=== PATIENT | female | born 1950 | race Two or more races ===

== ENCOUNTER 2017-02-16 08:50 | Outpatient (CLI) | payer OTHER ==
[~2017-02-16 08:50] MED LIST: AMOX1TAB12 PO; ASPIR 8181 MG; CALTRATE-600600 MG; CELEBREX100 MG PO; COZAAR50 MG PO; CRESTOR5 MG PO; FLONASE16 GM NS; GARLIC1000 MG; NASONEX17 GM NS; OMEPRAZOLE40 MG PO; PROVENTIL S1 ML/5 MG IH; RESTORA CAPSUL1 EACH PO; SYNTEST D.S TAB1 TAB; SYNTHROID100 MCG PO; TUSSI PRES-B L120 M1 PO; VASOTEC10 MG; ZITHROMAX TRI-500 MG PO; ZYRTEC10 MG PO
== END 2017-02-16 15:00 | disposition home or self-care (01) ==
LOC: TOM 08:50
DX: J44.9 Chronic obstructive pulmonary disease, unspecified (principal); R07.89 Other chest pain

== ENCOUNTER → 2017-04-06 | Outpatient (CLI) | payer OTHER | END | disposition home or self-care (01) | LOC: RX STUDY → EDBD → RX STUDY 08-25 07:23 → RAD 09:25 | DX: M12.862 Other specific arthropathies, not elsewhere classified, left knee (principal); M12.861 Other specific arthropathies, not elsewhere classified, right knee ==

== ENCOUNTER → 2017-04-06 | Outpatient (CLI) | payer OTHER | END | disposition home or self-care (01) | LOC: SONOGRAMA 09:27 → NUCLEAR 04-09 13:00 | DX: M12.862 Other specific arthropathies, not elsewhere classified, left knee (principal); M12.861 Other specific arthropathies, not elsewhere classified, right knee; M17.0 Bilateral primary osteoarthritis of knee ==

== ENCOUNTER 2017-04-09 13:27 | Outpatient (CLI) | payer OTHER | END 2017-04-09 13:29 | disposition home or self-care (01) | LOC: NUCLEAR 13:27 | DX: M81.0 Age-related osteoporosis without current pathological fracture (principal) ==

== ENCOUNTER → 2017-05-14 | Emergency (ER) | payer OTHER ==
[~2017-05-14] VITALS: Ht 154.9 cm; Wt 63.5 kg
[~2017-05-14] MED LIST changes: +CIPRO500 MG PO; +MUPIROCIN22 GM TOP; +PANTOPRAZOLE SO40 MG
== END | disposition left against medical advice (07) ==
LOC: ER 13:35
DX: Z53.20 Procedure and treatment not carried out because of patient's decision for unspecified reasons (principal)

== ENCOUNTER 2017-05-18 01:26 | Emergency (ER) | payer OTHER ==
[~2017-05-18] VITALS: Ht 152.4 cm; Wt 77.1 kg
[~2017-05-18 01:26] MED LIST changes: -CIPRO500 MG PO; -MUPIROCIN22 GM TOP
[2017-05-18] MEDS ORDERED: CIPRO500 MG PO ×2 (05:34→05:35)
[2017-05-18] MEDS ORDERED: MUPIROCIN22 GM TOP ×2 (05:38→05:42)
== END 2017-05-18 06:01 | disposition home or self-care (01) ==
LOC: ER 01:26
DX: R33.8 Other retention of urine (principal); N39.0 Urinary tract infection, site not specified

== ENCOUNTER → 2017-05-31 | Emergency (ER) | payer OTHER ==
[~2017-05-31] MED LIST changes: +CIPRO500 MG PO; +MUPIROCIN22 GM TOP
== END | disposition left against medical advice (07) ==
LOC: ER 11:52
DX: Z53.20 Procedure and treatment not carried out because of patient's decision for unspecified reasons (principal)

== ENCOUNTER → 2017-06-18 | Outpatient (CLI) | payer OTHER | END | disposition home or self-care (01) | LOC: RAD 10:16 | DX: M12.89 Other specific arthropathies, not elsewhere classified, multiple sites (principal); M19.90 Unspecified osteoarthritis, unspecified site ==

== ENCOUNTER 2017-06-27 07:10 | Outpatient (CLI) | payer OTHER ==
[~2017-06-27] VITALS: Ht 152.4 cm; Wt 68.0 kg
[2017-06-27] MEDS ORDERED: FLONASE16 GM NASAL (09:12)
[2017-06-27] MEDS ORDERED: ZYRTEC10 MG PO (09:13)
== END 2017-06-27 07:30 | disposition home or self-care (01) ==
LOC: OFIC 805 07:10
DX: E03.8 Other specified hypothyroidism (principal); J32.8 Other chronic sinusitis; J33.0 Polyp of nasal cavity; R06.83 Snoring

== ENCOUNTER 2017-07-02 07:10 | Outpatient (CLI) | payer OTHER ==
[~2017-07-02 07:10] MED LIST changes: +FLONASE16 GM NASAL
== END 2017-07-02 07:12 | disposition home or self-care (01) ==
LOC: SONOGRAMA 07:10
DX: R10.9 Unspecified abdominal pain (principal)

== ENCOUNTER 2017-07-09 08:46 | Outpatient (CLI) | payer OTHER | END 2017-07-09 08:51 | disposition home or self-care (01) | LOC: MAMO-SONO 08:46 | DX: Z12.31 Encounter for screening mammogram for malignant neoplasm of breast (principal); Z87.898 Personal history of other specified conditions; N61.0 Mastitis without abscess; N60.19 Diffuse cystic mastopathy of unspecified breast ==

== ENCOUNTER 2017-07-24 12:43 | Emergency (ER) | payer OTHER ==
[~2017-07-24] VITALS: Ht 154.9 cm; Wt 63.5 kg
[2017-07-25] MEDS ORDERED: ZYRTEC10 MG PO (11:29)
[2017-07-25] MEDS ORDERED: FLONASE16 GM NASAL (11:29)
== END 2017-07-24 15:27 | disposition home or self-care (01) ==
LOC: ER 12:43
DX: M54.89 Other dorsalgia (principal); M54.6 Pain in thoracic spine; R06.02 Shortness of breath; F41.8 Other specified anxiety disorders

== ENCOUNTER 2017-07-25 10:41 | Outpatient (CLI) | payer OTHER ==
[~2017-07-25] VITALS: Ht 152.4 cm; Wt 68.0 kg
[2017-07-25] MEDS ORDERED: FLONASE16 GM NASAL (11:29)
[2017-07-25] MEDS ORDERED: ZYRTEC10 MG PO (11:29)
== END 2017-07-25 11:10 | disposition home or self-care (01) ==
LOC: OFIC 805 10:41
DX: J32.8 Other chronic sinusitis (principal); J33.0 Polyp of nasal cavity; E03.8 Other specified hypothyroidism

== ENCOUNTER 2017-08-10 06:56 | Emergency (ER) | payer OTHER ==
[~2017-08-10] VITALS: Ht 157.5 cm; Wt 66.7 kg
[2017-08-10] MEDS ORDERED: MEDROLPACK PO (08:34)
[2017-08-10] MEDS ORDERED: VICKS VAPORUB170 G2 TOP (08:34)
[2017-08-10] MEDS ORDERED: ZITHROMAX TRI-500 MG PO (08:34)
== END 2017-08-10 08:55 | disposition home or self-care (01) ==
LOC: ER 06:56
DX: J04.0 Acute laryngitis (principal)

== ENCOUNTER 2017-08-15 07:30 | Outpatient (CLI) | payer OTHER ==
[~2017-08-15] VITALS: Ht 152.4 cm; Wt 66.2 kg
[~2017-08-15 07:30] MED LIST changes: +MEDROLPACK PO; +VICKS VAPORUB170 G2 TOP
== END 2017-08-15 07:45 | disposition home or self-care (01) ==
LOC: OFIC 805 07:30
DX: J01.80 Other acute sinusitis (principal); J04.0 Acute laryngitis; J31.0 Chronic rhinitis; J06.9 Acute upper respiratory infection, unspecified; E89.0 Postprocedural hypothyroidism

== ENCOUNTER → 2017-09-11 | Emergency (ER) | payer OTHER | END | disposition left against medical advice (07) | LOC: ER 11:07 | DX: Z53.20 Procedure and treatment not carried out because of patient's decision for unspecified reasons (principal) ==

== ENCOUNTER 2017-11-11 17:07 | Emergency (ER) | payer OTHER ==
[~2017-11-11] VITALS: Ht 154.9 cm; Wt 68.0 kg
== END 2017-11-11 20:08 | disposition home or self-care (01) ==
LOC: ER 17:07
DX: I87.2 Venous insufficiency (chronic) (peripheral) (principal); M25.561 Pain in right knee

== ENCOUNTER 2017-11-28 16:12 | Emergency (ER) | payer OTHER ==
[~2017-11-28] VITALS: Ht 154.9 cm; Wt 68.0 kg
[2017-11-28] MEDS ORDERED: SYNTHROID100 MCG (16:30)
[2017-11-28] MEDS ORDERED: VITAMIN D400 UNI2 (16:30)
[2017-11-28] MEDS ORDERED: VITAMIN C60 MG (16:30)
[2017-11-28] MEDS ORDERED: ZANTAC150 MG (16:30)
== END 2017-11-28 17:42 | disposition home or self-care (01) ==
LOC: ER 16:12
DX: I86.8 Varicose veins of other specified sites (principal); M79.605 Pain in left leg

== ENCOUNTER 2017-12-04 08:04 | Outpatient (CLI) | payer OTHER ==
[~2017-12-04 08:04] MED LIST changes: +SYNTHROID100 MCG; +VITAMIN C60 MG; +VITAMIN D400 UNI2; +ZANTAC150 MG
== END 2017-12-04 08:11 | disposition home or self-care (01) ==
LOC: NUCLEAR 08:04
DX: R07.89 Other chest pain (principal); J44.9 Chronic obstructive pulmonary disease, unspecified

== ENCOUNTER 2018-01-30 08:55 | Outpatient (CLI) | payer OTHER | END 2018-01-30 08:57 | disposition home or self-care (01) | LOC: SONOGRAMA 08:55 | DX: N60.11 Diffuse cystic mastopathy of right breast (principal); N60.12 Diffuse cystic mastopathy of left breast; Z12.31 Encounter for screening mammogram for malignant neoplasm of breast ==

== ENCOUNTER 2018-02-08 18:54 | Emergency (ER) | payer OTHER ==
[~2018-02-08] VITALS: Ht 152.4 cm; Wt 65.8 kg
== END 2018-02-08 22:04 | disposition home or self-care (01) ==
LOC: ER 18:54
DX: N39.0 Urinary tract infection, site not specified (principal); R10.2 Pelvic and perineal pain

== ENCOUNTER 2018-02-25 02:37 | Emergency (ER) | payer OTHER ==
[~2018-02-25] VITALS: Ht 165.1 cm; Wt 64.4 kg
== END 2018-02-25 07:46 | disposition home or self-care (01) ==
LOC: ER 02:37
DX: R33.8 Other retention of urine (principal); N32.0 Bladder-neck obstruction

== ENCOUNTER → 2018-02-26 | Emergency (ER) | payer OTHER ==
[~2018-02-26] VITALS: Ht 154.9 cm; Wt 74.8 kg
== END | disposition home or self-care (01) ==
LOC: ER 22:16
DX: S90.112A Contusion of left great toe without damage to nail, initial encounter (principal); W22.8XXA Striking against or struck by other objects, initial encounter; Y93.89 Activity, other specified; Y92.59 Other trade areas as the place of occurrence of the external cause; Y99.8 Other external cause status

== ENCOUNTER 2018-03-12 10:42 | Outpatient (CLI) | payer OTHER | END 2018-03-12 14:02 | disposition home or self-care (01) | LOC: SONOGRAMA 10:42 | DX: M19.90 Unspecified osteoarthritis, unspecified site (principal) ==

== ENCOUNTER → 2018-03-19 | Outpatient (CLI) | payer OTHER | END | disposition home or self-care (01) | LOC: NUCLEAR 14:49 | DX: I87.2 Venous insufficiency (chronic) (peripheral) (principal) ==

== ENCOUNTER 2018-04-03 07:10 | Outpatient (CLI) | payer OTHER ==
[~2018-04-03] VITALS: Ht 152.4 cm; Wt 64.0 kg
[2018-04-03] MEDS ORDERED: FLONASE16 GM NASAL ×2 (09:06→09:07)
[2018-04-03] MEDS ORDERED: CETIRIZINE HCL10 MG PO ×2 (09:07)
== END 2018-04-03 07:25 | disposition home or self-care (01) ==
LOC: OFIC 805 07:10
DX: J32.8 Other chronic sinusitis (principal); J37.0 Chronic laryngitis; J31.0 Chronic rhinitis

== ENCOUNTER 2018-04-05 07:41 | Outpatient (CLI) | payer OTHER ==
[~2018-04-05 07:41] MED LIST changes: +CETIRIZINE HCL10 MG PO
== END 2018-04-05 08:08 | disposition home or self-care (01) ==
LOC: SONOGRAMA 07:41
DX: R31.9 Hematuria, unspecified (principal)

== ENCOUNTER 2018-05-07 18:51 | Emergency (ER) | payer OTHER ==
[~2018-05-07] VITALS: Ht 157.5 cm; Wt 66.2 kg
== END 2018-05-07 21:52 | disposition home or self-care (01) ==
LOC: ER 18:51
DX: N39.0 Urinary tract infection, site not specified (principal); B96.89 Other specified bacterial agents as the cause of diseases classified elsewhere

== ENCOUNTER 2018-05-14 07:07 | Outpatient (CLI) | payer OTHER | END 2018-05-14 07:14 | disposition home or self-care (01) | LOC: RAD 07:07 | DX: M12.89 Other specific arthropathies, not elsewhere classified, multiple sites (principal) ==

== ENCOUNTER → 2018-05-25 | Emergency (ER) | payer OTHER ==
[~2018-05-25] VITALS: Ht 154.9 cm; Wt 65.8 kg
== END | disposition left against medical advice (07) ==
LOC: ER 09:01
DX: Z53.20 Procedure and treatment not carried out because of patient's decision for unspecified reasons (principal)

== ENCOUNTER 2018-06-11 08:59 | Outpatient (CLI) | payer OTHER | END 2018-06-11 16:40 | disposition home or self-care (01) | LOC: LAB 08:59 | DX: R74.8 Abnormal levels of other serum enzymes (principal); Z11.3 Encounter for screening for infections with a predominantly sexual mode of transmission; A60.04 Herpesviral vulvovaginitis ==

== ENCOUNTER → 2018-07-26 | Emergency (ER) | payer OTHER ==
[~2018-07-26] VITALS: Ht 160 cm; Wt 67.1 kg
== END | disposition home or self-care (01) ==
LOC: ER 08:22
DX: M25.561 Pain in right knee (principal)

== ENCOUNTER → 2018-08-03 | Emergency (ER) | payer OTHER ==
[~2018-08-03] VITALS: Ht 154.9 cm; Wt 65.8 kg
[~2018-08-03] MED LIST changes: +DICLOFENAC POTA50 MG
== END | disposition left against medical advice (07) ==
LOC: ER 11:01
DX: Z53.20 Procedure and treatment not carried out because of patient's decision for unspecified reasons (principal)

== ENCOUNTER 2018-08-07 09:12 | Outpatient (CLI) | payer OTHER | END 2018-08-07 09:22 | disposition home or self-care (01) | LOC: RAD 501 09:12 | DX: M25.561 Pain in right knee (principal); M25.562 Pain in left knee ==

== ENCOUNTER 2018-08-08 15:09 | Outpatient (CLI) | payer OTHER | END 2018-08-08 15:11 | disposition home or self-care (01) | LOC: RAD 15:09 | DX: M17.0 Bilateral primary osteoarthritis of knee (principal) ==

== ENCOUNTER 2018-08-29 07:38 | Outpatient (CLI) | payer OTHER | END 2018-08-29 07:51 | disposition home or self-care (01) | LOC: LAB 07:38 | DX: D64.89 Other specified anemias (principal); E88.89 Other specified metabolic disorders; D68.8 Other specified coagulation defects; N39.0 Urinary tract infection, site not specified; Z22.322 Carrier or suspected carrier of Methicillin resistant Staphylococcus aureus; I49.8 Other specified cardiac arrhythmias; Z76.89 Persons encountering health services in other specified circumstances ==

== ENCOUNTER 2018-09-04 21:55 | Emergency (ER) | payer OTHER ==
[~2018-09-04] VITALS: Ht 152.4 cm; Wt 66.2 kg
== END 2018-09-05 01:50 | disposition home or self-care (01) ==
LOC: ER 21:55 → EDBD 09-05 00:08 → ER 09-05 01:50
DX: R42 Dizziness and giddiness (principal); R11.0 Nausea; R45.0 Nervousness; R40.0 Somnolence; T40.2X5A Adverse effect of other opioids, initial encounter; Y92.89 Other specified places as the place of occurrence of the external cause

== ENCOUNTER 2018-09-09 05:00 | Day surgery (SDC) | payer OTHER | END 2018-09-09 16:00 | disposition home or self-care (01) | LOC: CIR.AMB 05:00 | DX: M23.321 Other meniscus derangements, posterior horn of medial meniscus, right knee (principal); M23.261 Derangement of other lateral meniscus due to old tear or injury, right knee; M12.261 Villonodular synovitis (pigmented), right knee; M22.41 Chondromalacia patellae, right knee ==

== ENCOUNTER 2018-09-27 19:05 | Emergency (ER) | payer OTHER ==
[~2018-09-27] VITALS: Ht 157.5 cm; Wt 70.3 kg
== END 2018-09-27 22:20 | disposition home or self-care (01) ==
LOC: ER 19:05
DX: R42 Dizziness and giddiness (principal); F06.4 Anxiety disorder due to known physiological condition

== ENCOUNTER 2018-11-13 06:38 | Outpatient (CLI) | payer OTHER | END 2018-11-13 06:50 | disposition home or self-care (01) | LOC: LAB 06:38 | DX: M06.89 Other specified rheumatoid arthritis, multiple sites (principal); I10 Essential (primary) hypertension; E11.9 Type 2 diabetes mellitus without complications; E03.8 Other specified hypothyroidism; E78.2 Mixed hyperlipidemia; M12.88 Other specific arthropathies, not elsewhere classified, other specified site; M81.0 Age-related osteoporosis without current pathological fracture ==

== ENCOUNTER 2018-11-29 08:57 | Outpatient (CLI) | payer OTHER ==
[~2018-11-29] VITALS: Ht 152.4 cm; Wt 63.5 kg
== END 2018-11-29 12:25 | disposition home or self-care (01) ==
LOC: OFIC 805 08:57
DX: J37.0 Chronic laryngitis (principal); R49.8 Other voice and resonance disorders; J31.0 Chronic rhinitis; E03.8 Other specified hypothyroidism

== ENCOUNTER 2018-12-03 02:51 | Emergency (ER) | payer OTHER ==
[~2018-12-03] VITALS: Ht 152.4 cm; Wt 63.5 kg
[2018-12-03] MEDS ORDERED: [UNRECOGNIZED DRUG - OTHER] (03:12)
== END 2018-12-03 05:04 | disposition home or self-care (01) ==
LOC: ER 02:51
DX: R33.8 Other retention of urine (principal)

== ENCOUNTER 2018-12-21 01:36 | Emergency (ER) | payer OTHER ==
[~2018-12-21] VITALS: Ht 154.9 cm; Wt 64.9 kg
[~2018-12-21 01:36] MED LIST changes: +[UNRECOGNIZED DRUG - OTHER]
== END 2018-12-21 04:06 | disposition home or self-care (01) ==
LOC: ER 01:36
DX: R33.8 Other retention of urine (principal)

== ENCOUNTER 2019-02-07 06:19 | Outpatient (CLI) | payer OTHER | END 2019-02-07 06:44 | disposition home or self-care (01) | LOC: LAB 06:19 | DX: I10 Essential (primary) hypertension (principal); E11.9 Type 2 diabetes mellitus without complications; E03.8 Other specified hypothyroidism; E78.2 Mixed hyperlipidemia; M83.8 Other adult osteomalacia ==

== ENCOUNTER 2019-02-13 13:54 | Outpatient (CLI) | payer OTHER | END 2019-02-13 14:01 | disposition home or self-care (01) | LOC: LAB 13:54 | DX: N39.0 Urinary tract infection, site not specified (principal) ==

== ENCOUNTER 2019-03-02 02:23 | Emergency (ER) | payer OTHER ==
[~2019-03-02] VITALS: Ht 152.4 cm; Wt 63.5 kg
[2019-03-02] MEDS ORDERED: TUSNEL LIQUID178 ML PO (04:47)
[2019-03-02] MEDS ORDERED: CLARITIN10 MG PO (04:47)
== END 2019-03-02 04:51 | disposition home or self-care (01) ==
LOC: ER 02:23
DX: B34.9 Viral infection, unspecified (principal)

== ENCOUNTER 2019-07-10 10:15 | Outpatient (CLI) | payer OTHER ==
[~2019-07-10 10:15] MED LIST changes: +CLARITIN10 MG PO; +TUSNEL LIQUID178 ML PO
== END 2019-07-10 11:20 | disposition home or self-care (01) ==
LOC: NUCLEAR 10:15
DX: I20.1 Angina pectoris with documented spasm (principal); M81.0 Age-related osteoporosis without current pathological fracture

== ENCOUNTER → 2019-07-10 12:47 | Outpatient (CLI) | payer OTHER | END | disposition home or self-care (01) | LOC: RAD 12:47 | DX: I10 Essential (primary) hypertension (principal) ==

== ENCOUNTER → 2019-07-21 08:46 | Outpatient (CLI) | payer OTHER | END | disposition home or self-care (01) | LOC: LAB 08:46 | DX: E03.8 Other specified hypothyroidism (principal) ==

== ENCOUNTER 2019-07-31 06:45 | Outpatient (CLI) | payer OTHER | END 2019-07-31 15:00 | disposition home or self-care (01) | LOC: LAB 06:45 | PROVIDERS: ATTEND Obstetrics & Gynecology | DX: Z11.3 Encounter for screening for infections with a predominantly sexual mode of transmission (principal); Z11.4 Encounter for screening for human immunodeficiency virus [HIV] ==

== ENCOUNTER 2019-08-11 11:17 | Outpatient (CLI) | payer OTHER ==
[~2019-08-11] VITALS: Ht 152.4 cm; Wt 65.8 kg
== END 2019-08-11 15:48 | disposition home or self-care (01) ==
LOC: OFIC 805 11:17
PROVIDERS: ATTEND Otolaryngology
DX: H65.92 Unspecified nonsuppurative otitis media, left ear (principal); J30.89 Other allergic rhinitis; H61.21 Impacted cerumen, right ear

== ENCOUNTER 2019-08-12 09:36 | Outpatient (CLI) | payer OTHER | END 2019-08-12 09:38 | disposition home or self-care (01) | LOC: RAD 09:36 | PROVIDERS: ATTEND Internal Medicine Cardiovascular Disease | DX: J44.9 Chronic obstructive pulmonary disease, unspecified (principal) ==

== ENCOUNTER → 2019-08-15 09:54 | Outpatient (CLI) | payer OTHER | END | disposition home or self-care (01) | LOC: LAB 09:54 | PROVIDERS: ATTEND Internal Medicine Cardiovascular Disease | DX: R10.84 Generalized abdominal pain (principal); A05.8 Other specified bacterial foodborne intoxications ==

== ENCOUNTER 2019-09-03 07:28 | Outpatient (CLI) | payer OTHER | END 2019-09-03 07:30 | disposition home or self-care (01) | LOC: MAMO-SONO 07:28 | DX: Z12.31 Encounter for screening mammogram for malignant neoplasm of breast (principal); N60.12 Diffuse cystic mastopathy of left breast; N60.11 Diffuse cystic mastopathy of right breast ==

== ENCOUNTER → 2019-09-11 | Outpatient (CLI) | payer OTHER | END | disposition home or self-care (01) | LOC: OFIC 805 11:30 | PROVIDERS: ATTEND Otolaryngology | DX: H90.42 Sensorineural hearing loss, unilateral, left ear, with unrestricted hearing on the contralateral side (principal); G47.33 Obstructive sleep apnea (adult) (pediatric) ==

== ENCOUNTER 2019-09-12 07:13 | Outpatient (CLI) | payer OTHER | END 2019-09-12 15:00 | disposition home or self-care (01) | LOC: LAB 07:13 | PROVIDERS: ATTEND Internal Medicine Cardiovascular Disease | DX: N39.0 Urinary tract infection, site not specified (principal) ==

== ENCOUNTER 2019-10-28 09:53 | Outpatient (CLI) | payer OTHER | END 2019-10-28 13:00 | disposition home or self-care (01) | LOC: OFIC 805 09:53 | PROVIDERS: ATTEND Otolaryngology | DX: G47.33 Obstructive sleep apnea (adult) (pediatric) (principal); H90.42 Sensorineural hearing loss, unilateral, left ear, with unrestricted hearing on the contralateral side; J30.89 Other allergic rhinitis ==

== ENCOUNTER → 2019-11-12 | Outpatient (CLI) | payer OTHER | END | disposition home or self-care (01) | LOC: NUCLEAR 09:00 | PROVIDERS: ATTEND Internal Medicine Cardiovascular Disease | DX: I87.2 Venous insufficiency (chronic) (peripheral) (principal) ==

== ENCOUNTER → 2020-01-23 10:30 | Outpatient (CLI) | payer OTHER | END | disposition home or self-care (01) | LOC: LAB 10:30 | PROVIDERS: ATTEND Internal Medicine Cardiovascular Disease | DX: N39.0 Urinary tract infection, site not specified (principal) ==

== ENCOUNTER 2020-04-15 07:37 | Outpatient (CLI) | payer OTHER | END 2020-04-15 08:00 | disposition home or self-care (01) | LOC: MAMO-SONO 07:37 | PROVIDERS: ATTEND Student in an Organized Health Care Education/Training Program | DX: D24.1 Benign neoplasm of right breast (principal); D24.2 Benign neoplasm of left breast; N64.59 Other signs and symptoms in breast; N60.11 Diffuse cystic mastopathy of right breast; N60.12 Diffuse cystic mastopathy of left breast; R10.84 Generalized abdominal pain; K57.90 Diverticulosis of intestine, part unspecified, without perforation or abscess without bleeding; Z12.31 Encounter for screening mammogram for malignant neoplasm of breast ==

== ENCOUNTER → 2020-06-11 06:45 | Outpatient (CLI) | payer OTHER ==
[~2020-06-11 06:45] MED LIST changes: +BACLOFEN10 MG; +KETO10TA2 PO; +NASAL MIST126 ML; +SKELAXIN800 MG PO; +VOLTAREN100 GM TOP; +[UNRECOGNIZED DRUG - SUPPLY] TOP
== END | disposition home or self-care (01) ==
LOC: LAB 06:45
DX: N39.0 Urinary tract infection, site not specified (principal)

== ENCOUNTER 2020-06-17 07:40 | Emergency (ER) | payer OTHER ==
[~2020-06-17] VITALS: Ht 152.4 cm; Wt 66.7 kg
[~2020-06-17 07:40] MED LIST changes: -BACLOFEN10 MG; -KETO10TA2 PO; -NASAL MIST126 ML; -SKELAXIN800 MG PO; -VOLTAREN100 GM TOP; -[UNRECOGNIZED DRUG - SUPPLY] TOP
[2020-06-17] MEDS ORDERED: NASAL MIST126 ML (08:05)
[2020-06-17] MEDS ORDERED: BACLOFEN10 MG (08:05)
[2020-06-17] MEDS ORDERED: [UNRECOGNIZED DRUG - SUPPLY] TOP (11:36)
[2020-06-17] MEDS ORDERED: SKELAXIN800 MG PO (11:36)
[2020-06-17] MEDS ORDERED: VOLTAREN100 GM TOP (11:36)
[2020-06-17] MEDS ORDERED: KETO10TA2 PO (11:36)
== END 2020-06-17 11:48 | disposition home or self-care (01) ==
LOC: ER 07:40
DX: M54.2 Cervicalgia (principal); M62.838 Other muscle spasm; M54.12 Radiculopathy, cervical region

== ENCOUNTER → 2020-06-22 06:39 | Outpatient (CLI) | payer OTHER ==
[~2020-06-22 06:39] MED LIST changes: +ATORVASTATIN CA10 MG PO; +BACLOFEN10 MG; +KETO10TA2 PO; +NASAL MIST126 ML; +PANTOPRAZOLE SO40 MG PO; +SKELAXIN800 MG PO; +SYNTHROID88 MCG PO; +VOLTAREN100 GM TOP; +[UNRECOGNIZED DRUG - SUPPLY] TOP
== END | disposition home or self-care (01) ==
LOC: LAB 06:39
PROVIDERS: ATTEND Internal Medicine Cardiovascular Disease
DX: N39.0 Urinary tract infection, site not specified (principal)

== ENCOUNTER 2020-06-28 14:13 | Outpatient (CLI) | payer OTHER ==
[~2020-06-28 14:13] MED LIST changes: -ATORVASTATIN CA10 MG PO; -PANTOPRAZOLE SO40 MG PO; -SYNTHROID88 MCG PO
== END 2020-06-28 14:19 | disposition home or self-care (01) ==
LOC: LAB 14:13
PROVIDERS: ATTEND Internal Medicine Cardiovascular Disease
DX: B00.9 Herpesviral infection, unspecified (principal); A60.9 Anogenital herpesviral infection, unspecified

== ENCOUNTER 2020-08-06 07:32 | Emergency (ER) | payer OTHER ==
[~2020-08-06] VITALS: Ht 152.4 cm; Wt 68.0 kg
[2020-08-06] MEDS ORDERED: PANTOPRAZOLE SO40 MG PO (07:45)
[2020-08-06] MEDS ORDERED: SYNTHROID88 MCG PO (07:45)
[2020-08-06] MEDS ORDERED: ATORVASTATIN CA10 MG PO (07:46)
== END 2020-08-06 10:12 | disposition home or self-care (01) ==
LOC: ER 07:32
DX: S60.221A Contusion of right hand, initial encounter (principal); S40.021A Contusion of right upper arm, initial encounter; W18.09XA Striking against other object with subsequent fall, initial encounter; Y93.89 Activity, other specified; Y92.414 Local residential or business street as the place of occurrence of the external cause; Y99.8 Other external cause status

== ENCOUNTER → 2020-08-13 06:40 | Outpatient (CLI) | payer OTHER ==
[~2020-08-13 06:40] MED LIST changes: +ATORVASTATIN CA10 MG PO; +PANTOPRAZOLE SO40 MG PO; +SYNTHROID88 MCG PO
== END | disposition home or self-care (01) ==
LOC: LAB 06:40
PROVIDERS: ATTEND Internal Medicine Cardiovascular Disease
DX: E03.9 Hypothyroidism, unspecified (principal); E78.2 Mixed hyperlipidemia; I10 Essential (primary) hypertension; E11.9 Type 2 diabetes mellitus without complications; M31.6 Other giant cell arteritis

== ENCOUNTER 2020-08-17 09:54 | Emergency (ER) | payer OTHER ==
[~2020-08-17] VITALS: Ht 152.4 cm; Wt 68.5 kg
== END 2020-08-17 10:40 | disposition home or self-care (01) ==
LOC: ER 09:54
DX: G44.89 Other headache syndrome (principal)

== ENCOUNTER 2020-11-06 08:19 | Outpatient (CLI) | payer OTHER | END 2020-11-06 08:26 | disposition home or self-care (01) | LOC: LAB 08:19 | PROVIDERS: ATTEND Specialist | DX: I10 Essential (primary) hypertension (principal); D68.8 Other specified coagulation defects; E78.89 Other lipoprotein metabolism disorders; R82.79 Other abnormal findings on microbiological examination of urine ==

== ENCOUNTER 2020-11-12 07:17 | Outpatient (CLI) | payer OTHER | END 2020-11-12 07:18 | disposition home or self-care (01) | LOC: NUCLEAR 07:17 | PROVIDERS: ATTEND Internal Medicine Cardiovascular Disease | DX: R07.89 Other chest pain (principal) | CPT/HCPCS: 78452; 93017; A9500 ==

== ENCOUNTER 2020-12-07 13:54 | Outpatient (CLI) | payer OTHER | END 2020-12-07 13:55 | disposition home or self-care (01) | LOC: LAB 13:54 | PROVIDERS: ATTEND Obstetrics & Gynecology | DX: N39.0 Urinary tract infection, site not specified (principal) ==

== ENCOUNTER → 2020-12-09 07:09 | Outpatient (CLI) | payer OTHER | END | disposition home or self-care (01) | LOC: LAB 07:09 | PROVIDERS: ATTEND Internal Medicine Cardiovascular Disease | DX: I10 Essential (primary) hypertension (principal); E11.9 Type 2 diabetes mellitus without complications; E03.8 Other specified hypothyroidism; E78.2 Mixed hyperlipidemia; Z12.11 Encounter for screening for malignant neoplasm of colon; E55.9 Vitamin D deficiency, unspecified; N39.0 Urinary tract infection, site not specified ==

== ENCOUNTER 2020-12-31 12:30 | Outpatient (CLI) | payer OTHER ==
[~2020-12-31 12:30] MED LIST changes: +NORVASC2.5 M1 PO
== END 2020-12-31 12:38 | disposition home or self-care (01) ==
LOC: RAD 12:30
PROVIDERS: ATTEND Internal Medicine Cardiovascular Disease
DX: I10 Essential (primary) hypertension (principal)

== ENCOUNTER 2021-01-05 07:25 | Outpatient (CLI) | payer OTHER | END 2021-01-05 07:26 | disposition home or self-care (01) | LOC: NUCLEAR 07:25 | PROVIDERS: ATTEND Internal Medicine Cardiovascular Disease | DX: I73.9 Peripheral vascular disease, unspecified (principal) ==

== ENCOUNTER → 2021-01-12 14:08 | Outpatient (CLI) | payer OTHER | END | disposition home or self-care (01) | LOC: LAB 14:08 | PROVIDERS: ATTEND General Practice | DX: N39.0 Urinary tract infection, site not specified (principal) ==

== ENCOUNTER 2021-01-17 07:13 | Outpatient (CLI) | payer OTHER | END 2021-01-17 07:22 | disposition home or self-care (01) | LOC: TOM 07:13 | PROVIDERS: ATTEND Specialist | DX: K57.90 Diverticulosis of intestine, part unspecified, without perforation or abscess without bleeding (principal); R10.84 Generalized abdominal pain ==

== ENCOUNTER 2021-03-31 10:03 | Outpatient (CLI) | payer OTHER | END 2021-03-31 10:09 | disposition home or self-care (01) | LOC: LAB 10:03 | PROVIDERS: ATTEND Internal Medicine Endocrinology, Diabetes & Metabolism | DX: B00.89 Other herpesviral infection (principal) ==

== ENCOUNTER 2021-04-12 07:23 | Outpatient (CLI) | payer OTHER | END 2021-04-12 07:25 | disposition home or self-care (01) | LOC: SONOGRAMA 07:23 | PROVIDERS: ATTEND Internal Medicine Cardiovascular Disease | DX: M12.9 Arthropathy, unspecified (principal) ==

== ENCOUNTER 2021-04-19 08:16 | Outpatient (CLI) | payer OTHER | END 2021-04-19 08:22 | disposition home or self-care (01) | LOC: TOM 08:16 | PROVIDERS: ATTEND Internal Medicine Cardiovascular Disease | DX: R51.9 Headache, unspecified (principal) ==

== ENCOUNTER 2021-04-21 19:16 | Emergency (ER) | payer OTHER ==
[~2021-04-21] VITALS: Ht 149.9 cm; Wt 66.2 kg
[2021-04-21] MEDS ORDERED: INDAPAMIDE1.25 MG (19:31)
[2021-04-21] MEDS ORDERED: IBANDRONATE SO150 MG (19:32)
== END 2021-04-21 20:31 | disposition home or self-care (01) ==
LOC: ER 19:16
DX: R50.9 Fever, unspecified (principal); I10 Essential (primary) hypertension; Z88.0 Allergy status to penicillin

== ENCOUNTER 2021-04-29 06:59 | Outpatient (CLI) | payer OTHER ==
[~2021-04-29 06:59] MED LIST changes: +IBANDRONATE SO150 MG; +INDAPAMIDE1.25 MG
== END 2021-04-29 07:00 | disposition home or self-care (01) ==
LOC: LAB 06:59
PROVIDERS: ATTEND Internal Medicine Cardiovascular Disease
DX: E03.9 Hypothyroidism, unspecified (principal); I10 Essential (primary) hypertension; E11.9 Type 2 diabetes mellitus without complications; E78.2 Mixed hyperlipidemia; E55.9 Vitamin D deficiency, unspecified

== ENCOUNTER 2021-06-04 02:11 | Emergency (ER) | payer OTHER ==
[~2021-06-04] VITALS: Ht 162.6 cm; Wt 63.5 kg
[2021-06-04] MEDS ORDERED: TAMS0.4C PO (04:42)
== END 2021-06-04 04:58 | disposition home or self-care (01) ==
LOC: ER 02:11
DX: R33.9 Retention of urine, unspecified (principal); Z88.0 Allergy status to penicillin

== ENCOUNTER 2021-06-29 06:33 | Outpatient (CLI) | payer OTHER ==
[~2021-06-29 06:33] MED LIST changes: +TAMS0.4C PO
== END 2021-06-29 06:34 | disposition home or self-care (01) ==
LOC: LAB 06:33
PROVIDERS: ATTEND Obstetrics & Gynecology
DX: A63.0 Anogenital (venereal) warts (principal); B97.3 Retrovirus as the cause of diseases classified elsewhere; Z11.51 Encounter for screening for human papillomavirus (HPV); A53.9 Syphilis, unspecified; B00.9 Herpesviral infection, unspecified; D64.9 Anemia, unspecified; R74.01 Elevation of levels of liver transaminase levels

== ENCOUNTER 2021-07-24 08:03 | Emergency (ER) | payer OTHER ==
[~2021-07-24] VITALS: Ht 154.9 cm; Wt 65.8 kg
[2021-07-24] MEDS ORDERED: LEVO-T75 MCG PO (08:13)
== END 2021-07-24 12:16 | disposition home or self-care (01) ==
LOC: ER 08:03
DX: B34.9 Viral infection, unspecified (principal); R09.81 Nasal congestion; I10 Essential (primary) hypertension; E78.00 Pure hypercholesterolemia, unspecified; E03.9 Hypothyroidism, unspecified; Z20.822 Contact with and (suspected) exposure to COVID-19; Z88.0 Allergy status to penicillin

== ENCOUNTER 2021-08-20 11:12 | Emergency (ER) | payer OTHER ==
[~2021-08-20] VITALS: Ht 149.9 cm; Wt 66.2 kg
[~2021-08-20 11:12] MED LIST changes: +LEVO-T75 MCG PO
== END 2021-08-20 15:32 ==
LOC: ER 11:12
DX: J04.0 Acute laryngitis (principal); Z20.822 Contact with and (suspected) exposure to COVID-19; Z88.0 Allergy status to penicillin; I10 Essential (primary) hypertension

== ENCOUNTER 2021-08-22 09:35 | Outpatient (CLI) | payer OTHER | END 2021-08-22 09:38 | disposition home or self-care (01) | LOC: MAMO-SONO 09:35 | PROVIDERS: ATTEND Specialist | DX: D24.1 Benign neoplasm of right breast (principal); D24.2 Benign neoplasm of left breast ==

== ENCOUNTER 2021-08-23 10:46 | Outpatient (CLI) | payer OTHER | END 2021-08-23 10:52 | disposition home or self-care (01) | LOC: RAD 10:46 | PROVIDERS: ATTEND Physical Medicine & Rehabilitation | DX: S93.402A Sprain of unspecified ligament of left ankle, initial encounter (principal); M17.0 Bilateral primary osteoarthritis of knee ==

== ENCOUNTER 2021-08-30 04:04 | Emergency (ER) | payer OTHER ==
[~2021-08-30] VITALS: Ht 154.9 cm; Wt 65.8 kg
== END 2021-08-30 13:04 | disposition home or self-care (01) ==
LOC: ER 04:04
DX: R00.1 Bradycardia, unspecified (principal); F41.9 Anxiety disorder, unspecified; E03.9 Hypothyroidism, unspecified; F43.10 Post-traumatic stress disorder, unspecified; R07.89 Other chest pain; I10 Essential (primary) hypertension; Z88.0 Allergy status to penicillin

== ENCOUNTER 2021-09-06 08:03 | Outpatient (CLI) | payer OTHER | END 2021-09-06 08:08 | disposition home or self-care (01) | LOC: LAB 08:03 | PROVIDERS: ATTEND Internal Medicine Cardiovascular Disease | DX: E03.9 Hypothyroidism, unspecified (principal) ==

== ENCOUNTER 2021-09-08 18:21 | Inpatient (IN) | payer OTHER ==
[~2021-09-08] VITALS: Ht 152.4 cm; Wt 64.4 kg
[2021-09-09] MEDS ORDERED: PANTOPRAZOLE SO40 MG (13:44)
[2021-09-09] MEDS ORDERED: TRIAMCINOLONE A15 G1 (13:44)
[2021-09-09] MEDS ORDERED: MAXIMUM D3325 MCG (13:44)
[2021-09-09] MEDS ORDERED: FOLIC ACID1 MG (13:44)
== END 2021-09-12 21:13 | disposition home or self-care (01) | DRG 641 ==
LOC: ER 18:21 → SEC-K 09-09 10:35 → MEDJ 09-09 10:35
PROVIDERS: ADMIT Internal Medicine; ATTEND Internal Medicine
PROC: BW28ZZZ Computerized Tomography (CT Scan) of Head (ICD-10-PCS; principal; 2021-09-09)
PROC: BW28ZZZ Computerized Tomography (CT Scan) of Head (ICD-10-PCS; 2021-09-11)
DX: E87.1 Hypo-osmolality and hyponatremia (principal); K29.70 Gastritis, unspecified, without bleeding; R10.13 Epigastric pain; E03.9 Hypothyroidism, unspecified; I10 Essential (primary) hypertension; Z88.0 Allergy status to penicillin

== ENCOUNTER 2021-09-14 10:25 | Outpatient (CLI) | payer OTHER ==
[~2021-09-14 10:25] MED LIST changes: +FOLIC ACID1 MG; +MAXIMUM D3325 MCG; +TRIAMCINOLONE A15 G1
== END 2021-09-14 10:33 | disposition home or self-care (01) ==
LOC: RAD 10:25
PROVIDERS: ATTEND Orthopaedic Surgery
DX: M25.511 Pain in right shoulder (principal)

== ENCOUNTER 2021-09-14 10:44 | Outpatient (CLI) | payer OTHER | END 2021-09-14 10:45 | disposition home or self-care (01) | LOC: NUCLEAR 10:44 | PROVIDERS: ATTEND Orthopaedic Surgery | DX: M81.0 Age-related osteoporosis without current pathological fracture (principal) ==

== ENCOUNTER 2021-09-14 11:39 | Outpatient (CLI) | payer OTHER | END 2021-09-14 11:41 | disposition home or self-care (01) | LOC: LAB 11:39 | PROVIDERS: ATTEND Orthopaedic Surgery | DX: N19 Unspecified kidney failure (principal) ==

== ENCOUNTER 2021-09-16 21:03 | Emergency (ER) | payer OTHER ==
[~2021-09-16] VITALS: Ht 157.5 cm; Wt 61.2 kg
== END 2021-09-16 23:58 | disposition home or self-care (01) ==
LOC: ER 21:03
DX: I10 Essential (primary) hypertension (principal); Z88.0 Allergy status to penicillin

== ENCOUNTER 2021-10-01 09:57 | Emergency (ER) | payer OTHER ==
[~2021-10-01] VITALS: Ht 147.3 cm; Wt 63.5 kg
[2021-10-01] MEDS ORDERED: PROTONIX40 M1 PO (10:11)
== END 2021-10-01 11:10 | disposition home or self-care (01) ==
LOC: ER 09:57
DX: M62.838 Other muscle spasm (principal); J39.2 Other diseases of pharynx; I10 Essential (primary) hypertension; Z88.0 Allergy status to penicillin

== ENCOUNTER 2021-10-06 06:16 | Outpatient (CLI) | payer OTHER ==
[~2021-10-06 06:16] MED LIST changes: +PROTONIX40 M1 PO
== END 2021-10-06 06:20 | disposition home or self-care (01) ==
LOC: LAB 06:16
PROVIDERS: ATTEND Internal Medicine Cardiovascular Disease
DX: E11.9 Type 2 diabetes mellitus without complications (principal)

== ENCOUNTER → 2021-10-31 06:31 | Outpatient (CLI) | payer OTHER | END | disposition home or self-care (01) | LOC: LAB 06:31 | PROVIDERS: ATTEND Obstetrics & Gynecology Maternal & Fetal Medicine | DX: N30.90 Cystitis, unspecified without hematuria (principal); D63.8 Anemia in other chronic diseases classified elsewhere; E08.9 Diabetes mellitus due to underlying condition without complications; E78.00 Pure hypercholesterolemia, unspecified; K92.1 Melena; E55.9 Vitamin D deficiency, unspecified; Z12.11 Encounter for screening for malignant neoplasm of colon ==

== ENCOUNTER 2021-11-24 12:00 | Outpatient (CLI) | payer OTHER | END 2021-11-24 12:06 | disposition home or self-care (01) | LOC: LAB 12:00 | PROVIDERS: ATTEND Obstetrics & Gynecology Maternal & Fetal Medicine | DX: E03.9 Hypothyroidism, unspecified (principal); N30.00 Acute cystitis without hematuria; D64.9 Anemia, unspecified ==

== ENCOUNTER → 2021-12-17 | Emergency (ER) | payer OTHER | END | disposition left against medical advice (07) | LOC: ER 15:35 | DX: Z53.21 Procedure and treatment not carried out due to patient leaving prior to being seen by health care provider (principal) ==

== ENCOUNTER 2022-02-17 11:09 | Outpatient (CLI) | payer OTHER | END 2022-02-17 11:15 | disposition home or self-care (01) | LOC: RAD 11:09 | PROVIDERS: ATTEND Physical Medicine & Rehabilitation | DX: M54.50 Low back pain, unspecified (principal); M25.552 Pain in left hip ==

== ENCOUNTER → 2022-03-03 | Emergency (ER) | payer OTHER ==
[~2022-03-03] VITALS: Ht 152.4 cm; Wt 65.8 kg
== END | disposition left against medical advice (07) ==
LOC: ER 13:55
DX: M79.662 Pain in left lower leg (principal)

== ENCOUNTER 2022-03-11 11:38 | Emergency (ER) | payer OTHER ==
[~2022-03-11] VITALS: Ht 152.4 cm; Wt 68.0 kg
[2022-03-11] MEDS ORDERED: NAPROXEN500 MG PO (13:27)
== END 2022-03-11 14:04 | disposition home or self-care (01) ==
LOC: ER 11:38
DX: M54.50 Low back pain, unspecified (principal)

== ENCOUNTER → 2022-04-01 | Emergency (ER) | payer OTHER ==
[~2022-04-01] VITALS: Ht 154.9 cm; Wt 68.0 kg
[~2022-04-01] MED LIST changes: +NAPROXEN500 MG PO
== END | disposition home or self-care (01) ==
LOC: ER 09:48
DX: H60.91 Unspecified otitis externa, right ear (principal); Z88.0 Allergy status to penicillin; I10 Essential (primary) hypertension

== ENCOUNTER 2022-05-01 19:17 | Emergency (ER) | payer OTHER ==
[~2022-05-01] VITALS: Ht 152.4 cm; Wt 68.9 kg
[2022-05-01] MEDS ORDERED: FLUCONAZOLE200 MG PO (21:43)
== END 2022-05-01 21:55 | disposition home or self-care (01) ==
LOC: ER 19:17
DX: I16.0 Hypertensive urgency (principal); Z88.0 Allergy status to penicillin

== ENCOUNTER 2022-06-03 07:07 | Outpatient (CLI) | payer OTHER ==
[~2022-06-03 07:07] MED LIST changes: +FLUCONAZOLE200 MG PO
== END 2022-06-03 07:17 | disposition home or self-care (01) ==
LOC: LAB 07:07
PROVIDERS: ATTEND Internal Medicine Cardiovascular Disease
DX: I11.9 Hypertensive heart disease without heart failure (principal); E78.9 Disorder of lipoprotein metabolism, unspecified

== ENCOUNTER 2022-06-14 21:43 | Emergency (ER) | payer OTHER ==
[~2022-06-14] VITALS: Ht 160 cm; Wt 72.6 kg
== END 2022-06-14 23:53 | disposition left against medical advice (07) ==
LOC: ER 21:43
DX: I10 Essential (primary) hypertension (principal); Z88.0 Allergy status to penicillin

== ENCOUNTER 2022-06-17 08:44 | Outpatient (CLI) | payer OTHER | END 2022-06-17 08:51 | disposition home or self-care (01) | LOC: LAB 08:44 | PROVIDERS: ATTEND Internal Medicine Cardiovascular Disease | DX: E78.2 Mixed hyperlipidemia (principal) ==

== ENCOUNTER 2022-06-28 19:44 | Emergency (ER) | payer OTHER ==
[~2022-06-28] VITALS: Ht 162.6 cm; Wt 71.7 kg
== END 2022-06-28 21:47 | disposition home or self-care (01) ==
LOC: ER 19:44
DX: I10 Essential (primary) hypertension (principal); Z88.0 Allergy status to penicillin

== ENCOUNTER 2022-07-02 19:43 | Emergency (ER) | payer OTHER ==
[~2022-07-02] VITALS: Ht 152.4 cm; Wt 69.9 kg
== END 2022-07-02 21:27 | disposition home or self-care (01) ==
LOC: ER 19:43
DX: S93.491A Sprain of other ligament of right ankle, initial encounter (principal); W18.39XA Other fall on same level, initial encounter; Y93.89 Activity, other specified; Y92.480 Sidewalk as the place of occurrence of the external cause; Z88.0 Allergy status to penicillin

== ENCOUNTER → 2022-07-07 | Emergency (ER) | payer OTHER ==
[~2022-07-07] VITALS: Ht 152.4 cm; Wt 69.4 kg
[~2022-07-07] MED LIST changes: +PANTOPRAZOLE SO40 M2 PO
== END | disposition home or self-care (01) ==
LOC: ER 17:49
DX: J37.0 Chronic laryngitis (principal); Z88.0 Allergy status to penicillin

== ENCOUNTER → 2022-07-24 | Outpatient (CLI) | payer OTHER | END | disposition home or self-care (01) | LOC: RAD 08:47 | PROVIDERS: ATTEND Orthopaedic Surgery | DX: M79.641 Pain in right hand (principal); M79.644 Pain in right finger(s); M79.671 Pain in right foot; M79.672 Pain in left foot; M25.571 Pain in right ankle and joints of right foot; M25.572 Pain in left ankle and joints of left foot ==

== ENCOUNTER → 2022-07-26 | Emergency (ER) | payer OTHER ==
[~2022-07-26] VITALS: Ht 152.4 cm; Wt 68.0 kg
== END | disposition home or self-care (01) ==
LOC: ER 11:01
DX: R07.9 Chest pain, unspecified (principal); K21.9 Gastro-esophageal reflux disease without esophagitis; E03.9 Hypothyroidism, unspecified; I10 Essential (primary) hypertension; Z88.0 Allergy status to penicillin; Z20.822 Contact with and (suspected) exposure to COVID-19

== ENCOUNTER 2022-09-06 09:01 | Emergency (ER) | payer OTHER ==
[~2022-09-06] VITALS: Ht 152.4 cm; Wt 69.4 kg
[2022-09-06] MEDS ORDERED: FLONASE SENSIM5.9 ML NASAL (11:24)
[2022-09-06] MEDS ORDERED: ZYRTEC10 MG PO (11:24)
== END 2022-09-06 11:48 | disposition home or self-care (01) ==
LOC: ER 09:01
DX: B34.9 Viral infection, unspecified (principal); I10 Essential (primary) hypertension; Z88.0 Allergy status to penicillin; Z20.822 Contact with and (suspected) exposure to COVID-19

== ENCOUNTER 2022-09-11 09:14 | Outpatient (CLI) | payer OTHER ==
[~2022-09-11 09:14] MED LIST changes: +FLONASE SENSIM5.9 ML NASAL
== END 2022-09-11 09:20 | disposition home or self-care (01) ==
LOC: MAMO-SONO 09:14
PROVIDERS: ATTEND Obstetrics & Gynecology Maternal & Fetal Medicine
DX: Z12.31 Encounter for screening mammogram for malignant neoplasm of breast (principal); N63.0 Unspecified lump in unspecified breast; N64.4 Mastodynia; N60.11 Diffuse cystic mastopathy of right breast

== ENCOUNTER 2022-10-31 18:45 | Emergency (ER) | payer OTHER ==
[~2022-10-31] VITALS: Ht 152.4 cm; Wt 68.0 kg
[2022-10-31] MEDS ORDERED: SYNTHROID75 MCG PO (19:20)
== END 2022-10-31 23:33 | disposition left against medical advice (07) ==
LOC: ER 18:45
PROVIDERS: General Practice
DX: J06.9 Acute upper respiratory infection, unspecified (principal); I10 Essential (primary) hypertension; E03.9 Hypothyroidism, unspecified; K21.9 Gastro-esophageal reflux disease without esophagitis; Z88.0 Allergy status to penicillin; Z20.822 Contact with and (suspected) exposure to COVID-19; M19.041 Primary osteoarthritis, right hand

== ENCOUNTER 2022-11-11 08:05 | Outpatient (CLI) | payer OTHER ==
[~2022-11-11 08:05] MED LIST changes: +SYNTHROID75 MCG PO
== END 2022-11-11 08:09 | disposition home or self-care (01) ==
LOC: LAB 08:05
PROVIDERS: ATTEND Internal Medicine Cardiovascular Disease
DX: E03.9 Hypothyroidism, unspecified (principal); E78.2 Mixed hyperlipidemia; K92.0 Hematemesis; I10 Essential (primary) hypertension; E11.9 Type 2 diabetes mellitus without complications; Z12.11 Encounter for screening for malignant neoplasm of colon

== ENCOUNTER 2022-11-13 09:33 | Outpatient (CLI) | payer OTHER | END 2022-11-13 09:34 | disposition home or self-care (01) | LOC: LAB 09:33 | PROVIDERS: ATTEND Internal Medicine Cardiovascular Disease | DX: Z12.11 Encounter for screening for malignant neoplasm of colon (principal); I10 Essential (primary) hypertension; E11.9 Type 2 diabetes mellitus without complications; E03.9 Hypothyroidism, unspecified; E78.2 Mixed hyperlipidemia; K92.0 Hematemesis ==

== ENCOUNTER 2022-11-18 20:09 | Emergency (ER) | payer OTHER ==
[~2022-11-18] VITALS: Ht 152.4 cm; Wt 68.0 kg
[2022-11-18] MEDS ORDERED: ATORVASTATIN CA20 MG PO (20:17)
== END 2022-11-18 21:59 | disposition home or self-care (01) ==
LOC: ER 20:09
DX: R07.89 Other chest pain (principal); F41.8 Other specified anxiety disorders; Z88.0 Allergy status to penicillin

== ENCOUNTER 2023-02-20 08:44 | Emergency (ER) | payer OTHER ==
[~2023-02-20] VITALS: Ht 147.3 cm; Wt 69.9 kg
[~2023-02-20 08:44] MED LIST changes: +ATORVASTATIN CA20 MG PO
== END 2023-02-20 10:32 | disposition home or self-care (01) ==
LOC: ER 08:45
DX: M25.552 Pain in left hip (principal); Z88.0 Allergy status to penicillin; Z91.013 Allergy to seafood
CPT/HCPCS: 96372; 99284; J1885

== ENCOUNTER → 2023-03-16 | Emergency (ER) | payer OTHER ==
[~2023-03-16] VITALS: Ht 152.4 cm; Wt 69.4 kg
== END | disposition left against medical advice (07) ==
LOC: ER 12:50
DX: Z53.21 Procedure and treatment not carried out due to patient leaving prior to being seen by health care provider (principal)

== ENCOUNTER 2023-04-03 18:14 | Emergency (ER) | payer OTHER ==
[~2023-04-03] VITALS: Ht 152.4 cm; Wt 70.8 kg
[2023-04-03 19:36] LABS: HEMATOCRIT 36.7 % (36.0-45.00); HEMOGLOBIN 12.7 g/dL (12.0-15.00); MEAN CELL VOLUME 88.1 fL (80.00-100.00); MEAN CORPUSCULAR HEMOGLOBIN 30.6 pg (27.00-32.0); MEAN CORPUSCULAR HGB CONC 34.7 g/dl (32.0-36.0); PLATELET COUNT 273 K/uL (150-450); RED BLOOD COUNT 4.17 M/uL (4.00-6.00); RED CELL DISTRIBUTION WIDTH 16.9 % (11.5-14.5)
[2023-04-03 20:01] LABS: CALCIUM 9.7 mg/dL (8.5-10.1); CREATININE SERUM 1.03 mg/dL (0.55-1.02); GFR 52.52; POTASSIUM 3.36 mEq/L (3.5-5.1)
[2023-04-03 20:05] LABS: PH,URINE 5.5 (5.0-8.0); URINE APPEARANCE Clear; URINE BILIRRUBIN Negative (NEGATIVE); URINE BLOOD Negative; URINE COLOR Yellow; URINE GLUCOSE Negative (NEGATIVE); URINE LEUKOCYTE Negative; URINE NITRATE Negative; URINE PROTEIN Trace (NEGATIVE); URINE UROBILINOGEN 0.2 E.U./dl
[2023-04-03 20:09] LABS: URINE BACTERIA 190.2 uL (0.0-1933); URINE EPITHELIAL CELLS 24.4 uL (0.0-38.8); URINE WBC 12.8 uL (0.0-23.2)
[2023-04-03 20:11] LABS: URINE RBC 1.2 uL (0.0-20.8)
== END 2023-04-03 23:22 | disposition home or self-care (01) ==
LOC: ER 18:14
PROVIDERS: Emergency Medicine
DX: R42 Dizziness and giddiness (principal); Z88.0 Allergy status to penicillin; Z91.013 Allergy to seafood; E03.9 Hypothyroidism, unspecified

== ENCOUNTER → 2023-04-11 09:02 | Outpatient (CLI) | payer OTHER ==
[2023-04-11 09:56] LABS: MEAN CELL VOLUME 88.5 fL (80.00-100.00); MEAN CORPUSCULAR HEMOGLOBIN 30.4 pg (27.00-32.0); MEAN CORPUSCULAR HGB CONC 34.4 g/dl (32.0-36.0); PLATELET COUNT 249 K/uL (150-450); RED BLOOD COUNT 3.96 M/uL (4.00-6.00); RED CELL DISTRIBUTION WIDTH 16.9 % (11.5-14.5)
[2023-04-11 09:59] LABS: PH,URINE 7.5 (5.0-8.0); URINE APPEARANCE Clear; URINE BILIRRUBIN Negative (NEGATIVE); URINE BLOOD Negative; URINE COLOR Yellow; URINE GLUCOSE Negative (NEGATIVE); URINE LEUKOCYTE Negative; URINE NITRATE Negative; URINE PROTEIN Trace (NEGATIVE); URINE UROBILINOGEN 0.2 E.U./dl
[2023-04-11 10:03] LABS: URINE BACTERIA 128.4 uL (0.0-1933); URINE EPITHELIAL CELLS 19.7 uL (0.0-38.8); URINE RBC 4.4 uL (0.0-20.8); URINE WBC 5.1 uL (0.0-23.2)
[2023-04-11 11:16] LABS: ALBUMIN 3.9 gm/dL (3.4-5.0); BILIRUBIN TOTAL 0.7 mg/dL (0.3-1.2); CALCIUM 8.8 mg/dL (8.5-10.1); CHOL HDL RATIO 5.6 (0-5.0); CREATININE SERUM 0.96 mg/dL (0.55-1.02); GFR 56.97; GLOBULINA 3.3 G/DL (2.4-3.5); POTASSIUM 4.11 mEq/L (3.5-5.1); T4 TOTAL 6.75 UG/DL (4.8-13.9); TOTAL PROTEIN 7.2 gm/dL (6.4-8.2)
== END | disposition home or self-care (01) ==
LOC: LAB 09:02
PROVIDERS: ATTEND Internal Medicine Cardiovascular Disease
DX: I10 Essential (primary) hypertension (principal); E11.9 Type 2 diabetes mellitus without complications; E03.9 Hypothyroidism, unspecified; E78.2 Mixed hyperlipidemia; Z12.11 Encounter for screening for malignant neoplasm of colon; E55.9 Vitamin D deficiency, unspecified

== ENCOUNTER 2023-04-16 15:03 | Outpatient (CLI) | payer OTHER ==
[2023-04-16 16:00] LABS: ob NEGATIVE (NEGATIVE)
== END 2023-04-16 15:06 | disposition home or self-care (01) ==
LOC: LAB 15:03
PROVIDERS: ATTEND Internal Medicine Cardiovascular Disease
DX: I10 Essential (primary) hypertension (principal); E11.9 Type 2 diabetes mellitus without complications; E03.9 Hypothyroidism, unspecified; E78.2 Mixed hyperlipidemia; Z12.11 Encounter for screening for malignant neoplasm of colon; E55.9 Vitamin D deficiency, unspecified

== ENCOUNTER → 2023-05-02 06:43 | Outpatient (CLI) | payer OTHER ==
[2023-05-02 07:09] LABS: HEMATOCRIT 35.8 % (36.0-45.00); HEMOGLOBIN 12.3 g/dL (12.0-15.00); MEAN CELL VOLUME 90.1 fL (80.00-100.00); MEAN CORPUSCULAR HEMOGLOBIN 31.1 pg (27.00-32.0); MEAN CORPUSCULAR HGB CONC 34.5 g/dl (32.0-36.0); PLATELET COUNT 294 K/uL (150-450); RED BLOOD COUNT 3.97 M/uL (4.00-6.00); RED CELL DISTRIBUTION WIDTH 16.1 % (11.5-14.5)
[2023-05-02 07:50] LABS: PH,URINE 7.5 (5.0-8.0); URINE APPEARANCE Clear; URINE BILIRRUBIN Negative (NEGATIVE); URINE BLOOD Negative; URINE COLOR Yellow; URINE GLUCOSE Negative (NEGATIVE); URINE LEUKOCYTE Trace; URINE NITRATE Negative; URINE PROTEIN 30 (NEGATIVE); URINE UROBILINOGEN 0.2 E.U./dl
[2023-05-02 07:53] LABS: URINE BACTERIA 589.6 uL (0.0-1933); URINE EPITHELIAL CELLS 41.2 uL (0.0-38.8); URINE RBC 8.1 uL (0.0-20.8); URINE WBC 16.5 uL (0.0-23.2)
[2023-05-02 08:13] LABS: ALBUMIN 3.9 gm/dL (3.4-5.0); BILIRUBIN TOTAL 0.49 mg/dL (0.3-1.2); CALCIUM 9.1 mg/dL (8.5-10.1); CREATININE SERUM 0.9 mg/dL (0.55-1.02); GFR 61.21; POTASSIUM 4.22 mEq/L (3.5-5.1); T4 TOTAL 2.39 UG/DL (4.8-13.9); TOTAL PROTEIN 6.9 gm/dL (6.4-8.2)
[2023-05-02 08:28] LABS: CHOL HDL RATIO 5.3 (0-5.0)
[2023-05-02 13:52] LABS: T3 TOTAL 0.291 ng/ml (0.846-2.02); VITAMIN D3 25 HYDROXY 33.55 ng/ml (30-120)
== END | disposition home or self-care (01) ==
LOC: LAB 06:43
PROVIDERS: ATTEND Internal Medicine Cardiovascular Disease
DX: I10 Essential (primary) hypertension (principal); E11.9 Type 2 diabetes mellitus without complications; E03.9 Hypothyroidism, unspecified; E78.1 Pure hyperglyceridemia; E55.9 Vitamin D deficiency, unspecified; D64.9 Anemia, unspecified

== ENCOUNTER 2023-05-03 15:26 | Outpatient (CLI) | payer OTHER ==
[2023-05-03 16:10] LABS: ob NEGATIVE (NEGATIVE)
== END 2023-05-03 15:27 | disposition home or self-care (01) ==
LOC: LAB 15:26
PROVIDERS: ATTEND Internal Medicine Cardiovascular Disease
DX: I10 Essential (primary) hypertension (principal); E11.9 Type 2 diabetes mellitus without complications; E03.9 Hypothyroidism, unspecified; E78.2 Mixed hyperlipidemia; Z12.11 Encounter for screening for malignant neoplasm of colon; E55.9 Vitamin D deficiency, unspecified

== ENCOUNTER 2023-09-01 08:28 | Outpatient (CLI) | payer OTHER ==
[2023-09-01 09:36] LABS: URINE APPEARANCE Clear; URINE BILIRRUBIN Negative (NEGATIVE); URINE BLOOD Negative; URINE COLOR Yellow; URINE GLUCOSE Negative (NEGATIVE); URINE LEUKOCYTE Negative; URINE NITRATE Negative; URINE PROTEIN Negative (NEGATIVE); URINE UROBILINOGEN 0.2 E.U./dl
[2023-09-01 09:43] LABS: URINE EPITHELIAL CELLS 40.7 uL (0.0-38.8); URINE RBC 10.2 uL (0.0-20.8); URINE WBC 4.9 uL (0.0-23.2)
[2023-09-01 10:44] LABS: CALCIUM 9.1 mg/dL (8.5-10.1); CHOL HDL RATIO 2.7 (0-5.0); CREATININE SERUM 0.62 mg/dL (0.55-1.02); GFR 94.09; POTASSIUM 4.25 mEq/L (3.5-5.1)
[2023-09-01 10:48] LABS: T4 TOTAL 17.13 UG/DL (4.8-13.9)
[2023-09-01 10:49] LABS: TSH 0.01 uIU/mL (0.358-3.74)
[2023-09-01 11:01] LABS: HEMATOCRIT 34.1 % (36.0-45.00); HEMOGLOBIN 11.5 g/dL (12.0-15.00); MEAN CELL VOLUME 84.3 fL (80.00-100.00); MEAN CORPUSCULAR HEMOGLOBIN 28.6 pg (27.00-32.0); MEAN CORPUSCULAR HGB CONC 33.9 g/dl (32.0-36.0); PLATELET COUNT 271 K/uL (150-450); RED BLOOD COUNT 4.04 M/uL (4.00-6.00); RED CELL DISTRIBUTION WIDTH 14.8 % (11.5-14.5)
== END 2023-09-01 08:29 | disposition home or self-care (01) ==
LOC: LAB 08:28
PROVIDERS: ATTEND Internal Medicine Cardiovascular Disease
DX: E11.9 Type 2 diabetes mellitus without complications (principal); E78.2 Mixed hyperlipidemia; I10 Essential (primary) hypertension

== ENCOUNTER 2023-09-25 20:58 | Emergency (ER) | payer OTHER ==
[~2023-09-25] VITALS: Ht 152.4 cm; Wt 68.0 kg
== END 2023-09-26 00:49 | disposition left against medical advice (07) ==
LOC: ER 20:58
DX: Z53.21 Procedure and treatment not carried out due to patient leaving prior to being seen by health care provider (principal)

== ENCOUNTER 2023-09-28 22:00 | Emergency (ER) | payer OTHER ==
[~2023-09-28] VITALS: Ht 152.4 cm; Wt 63.5 kg
[2023-09-28] MEDS ORDERED: ENALAPRILAT DIHYDRATE 1.25 MG/ML VIAL IV ONE ×2 (22:45→23:02)
[2023-09-28] MEDS ORDERED: GUAIFENESIN/DEXTROMETHORPHAN 10ML BLIST.PACK PO ONE (22:45)
[2023-09-28] MEDS ORDERED: GUAIFEN/DEXTROMETHORPHAN/PE 10 ML BLIST.PACK PO ONE (23:02)
[2023-09-28 23:32] LABS: HEMATOCRIT 33.5 % (36.0-45.00); HEMOGLOBIN 11.2 g/dL (12.0-15.00); MEAN CELL VOLUME 81.1 fL (80.00-100.00); MEAN CORPUSCULAR HEMOGLOBIN 27.1 pg (27.00-32.0); MEAN CORPUSCULAR HGB CONC 33.4 g/dl (32.0-36.0); PLATELET COUNT 256 K/uL (150-450); RED BLOOD COUNT 4.13 M/uL (4.00-6.00); RED CELL DISTRIBUTION WIDTH 15.1 % (11.5-14.5)
[2023-09-28 23:45] LABS: ALBUMIN 3.7 gm/dL (3.4-5.0); BILIRUBIN TOTAL 0.34 mg/dL (0.3-1.2); CALCIUM 9.1 mg/dL (8.5-10.1); CREATININE SERUM 0.7 mg/dL (0.55-1.02); GFR 81.8; GLOBULINA 3.8 G/DL (2.4-3.5); POTASSIUM 3.6 mEq/L (3.5-5.1); TOTAL PROTEIN 7.5 gm/dL (6.4-8.2)
[2023-09-28] MEDS ORDERED: ACETAMINOPHEN 500 MG GEL..CAP PO ONE (23:54)
== END 2023-09-29 01:40 | disposition home or self-care (01) ==
LOC: ER 22:00
PROVIDERS: Emergency Medicine
DX: J32.9 Chronic sinusitis, unspecified (principal); R05.9 Cough, unspecified; Z20.822 Contact with and (suspected) exposure to COVID-19; I10 Essential (primary) hypertension; Z88.0 Allergy status to penicillin; Z91.013 Allergy to seafood
CPT/HCPCS: 36415; 71046; 96365; 99283; J3490

== ENCOUNTER 2023-12-20 08:27 | Outpatient (CLI) | payer OTHER | END 2023-12-20 08:29 | disposition home or self-care (01) | LOC: SONOGRAMA 08:27 | PROVIDERS: ATTEND Internal Medicine Cardiovascular Disease | DX: M12.9 Arthropathy, unspecified (principal) ==

== ENCOUNTER → 2024-04-10 10:28 | Outpatient (CLI) | payer OTHER ==
[2024-04-10 11:21] LABS: HEMATOCRIT 35.5 % (36.0-45.00); HEMOGLOBIN 12.2 g/dL (12.0-15.00); MEAN CELL VOLUME 87.4 fL (80.00-100.00); MEAN CORPUSCULAR HGB CONC 34.3 g/dl (32.0-36.0); PLATELET COUNT 311 K/uL (150-450); RED BLOOD COUNT 4.06 M/uL (4.00-6.00); RED CELL DISTRIBUTION WIDTH 15.9 % (11.5-14.5)
[2024-04-10 12:56] LABS: ALBUMIN 3.9 gm/dL (3.4-5.0); BILIRUBIN TOTAL 0.6 mg/dL (0.3-1.2); CREATININE SERUM 0.81 mg/dL (0.55-1.02); GFR 69.12; GLOBULINA 3.4 G/DL (2.4-3.5); POTASSIUM 4.24 mEq/L (3.5-5.1); T4 TOTAL 11.91 UG/DL (4.8-13.9); TOTAL PROTEIN 7.3 gm/dL (6.4-8.2)
[2024-04-10 12:57] LABS: CHOL HDL RATIO 4.1 (0-5.0)
[2024-04-10 12:58] LABS: TSH 23.3 uIU/mL (0.358-3.74)
[2024-04-10 13:22] LABS: T3 TOTAL 0.995 ng/ml (0.846-2.02); VITAMIN D3 25 HYDROXY 43.72 ng/ml (30-120)
== END | disposition home or self-care (01) ==
LOC: LAB 10:28
PROVIDERS: ATTEND Internal Medicine Cardiovascular Disease
DX: E03.9 Hypothyroidism, unspecified (principal); I10 Essential (primary) hypertension; E11.9 Type 2 diabetes mellitus without complications; E78.2 Mixed hyperlipidemia; D64.0 Hereditary sideroblastic anemia; E55.9 Vitamin D deficiency, unspecified; M81.0 Age-related osteoporosis without current pathological fracture

== ENCOUNTER 2024-04-12 09:52 | Outpatient (CLI) | payer OTHER ==
[2024-04-12 12:11] LABS: ob POSITIVE (NEGATIVE)
== END 2024-04-12 09:57 | disposition home or self-care (01) ==
LOC: LAB 09:52
PROVIDERS: ATTEND Internal Medicine Cardiovascular Disease
DX: E78.2 Mixed hyperlipidemia (principal); I10 Essential (primary) hypertension; E11.9 Type 2 diabetes mellitus without complications; E03.9 Hypothyroidism, unspecified; D64.9 Anemia, unspecified; E55.9 Vitamin D deficiency, unspecified; M81.0 Age-related osteoporosis without current pathological fracture

== ENCOUNTER 2024-04-21 13:10 | Outpatient (CLI) | payer OTHER | END 2024-04-21 13:19 | disposition home or self-care (01) | LOC: MAMO-SONO 13:10 | PROVIDERS: ATTEND Obstetrics & Gynecology | DX: N60.09 Solitary cyst of unspecified breast (principal); N95.0 Postmenopausal bleeding; Z12.31 Encounter for screening mammogram for malignant neoplasm of breast ==

== ENCOUNTER 2024-04-27 19:10 | Emergency (ER) | payer OTHER ==
[~2024-04-27] VITALS: Ht 152.4 cm; Wt 63.5 kg
[2024-04-27 20:22] LABS: HEMATOCRIT 34.4 % (36.0-45.00); HEMOGLOBIN 11.9 g/dL (12.0-15.00); MEAN CELL VOLUME 87.5 fL (80.00-100.00); MEAN CORPUSCULAR HEMOGLOBIN 30.4 pg (27.00-32.0); MEAN CORPUSCULAR HGB CONC 34.7 g/dl (32.0-36.0); PLATELET COUNT 311 K/uL (150-450); RED BLOOD COUNT 3.93 M/uL (4.00-6.00); RED CELL DISTRIBUTION WIDTH 14.8 % (11.5-14.5)
[2024-04-27 20:44] LABS: URINE APPEARANCE Clear; URINE BILIRRUBIN Negative (NEGATIVE); URINE BLOOD Negative; URINE COLOR Yellow; URINE GLUCOSE Negative (NEGATIVE); URINE KETONE Negative (NEGATIVE); URINE LEUKOCYTE Negative; URINE NITRATE Negative; URINE PROTEIN Negative (NEGATIVE); URINE UROBILINOGEN 0.2 E.U./dl
[2024-04-27 20:45] LABS: URINE BACTERIA 88.1 uL (0.0-1933); URINE EPITHELIAL CELLS 12.9 uL (0.0-38.8); URINE RBC 3.3 uL (0.0-20.8)
[2024-04-27 20:59] LABS: URINE CAST 0.14 uL (0.0-1.40)
== END 2024-04-27 22:06 | disposition home or self-care (01) ==
LOC: ER 19:10
PROVIDERS: General Practice
DX: R53.81 Other malaise (principal); I16.9 Hypertensive crisis, unspecified; I10 Essential (primary) hypertension; E03.8 Other specified hypothyroidism; Z88.0 Allergy status to penicillin; Z91.013 Allergy to seafood

== ENCOUNTER → 2024-05-12 10:48 | Outpatient (CLI) | payer OTHER | END | disposition home or self-care (01) | LOC: NUCLEAR 05-09 13:15 | PROVIDERS: ATTEND Obstetrics & Gynecology | DX: M85.9 Disorder of bone density and structure, unspecified (principal); M81.0 Age-related osteoporosis without current pathological fracture ==

== ENCOUNTER 2024-05-18 03:45 | Emergency (ER) | payer OTHER ==
[~2024-05-18] VITALS: Ht 152.4 cm; Wt 68.0 kg
== END 2024-05-18 04:53 | disposition home or self-care (01) ==
LOC: ER 03:45
DX: I10 Essential (primary) hypertension (principal); Z88.0 Allergy status to penicillin; Z91.013 Allergy to seafood

== ENCOUNTER 2024-05-20 10:43 | Outpatient (CLI) | payer OTHER | END 2024-05-20 10:48 | disposition home or self-care (01) | LOC: RAD 10:43 | PROVIDERS: ATTEND Internal Medicine Cardiovascular Disease | DX: M19.90 Unspecified osteoarthritis, unspecified site (principal) ==

== ENCOUNTER → 2024-06-08 | Emergency (ER) | payer OTHER ==
[~2024-06-08] VITALS: Ht 152.4 cm; Wt 64.4 kg
[~2024-06-08] MED LIST changes: +LOSARTAN-HCTZ1 EACH PO
== END | disposition left against medical advice (07) ==
LOC: ER 17:47
DX: Z53.21 Procedure and treatment not carried out due to patient leaving prior to being seen by health care provider (principal)

== ENCOUNTER → 2024-06-21 | Emergency (ER) | payer OTHER ==
[~2024-06-21] VITALS: Ht 152.4 cm; Wt 68.0 kg
[~2024-06-21] MED LIST changes: +IPRATROPIUM BROMIDE 0.5 MG/2.5 ML AMPUL.NEB IH SCH
[2024-06-21 09:59] LABS: HEMATOCRIT 34.8 % (36.0-45.00); HEMOGLOBIN 11.9 g/dL (12.0-15.00); MEAN CELL VOLUME 86.9 fL (80.00-100.00); MEAN CORPUSCULAR HEMOGLOBIN 29.7 pg (27.00-32.0); MEAN CORPUSCULAR HGB CONC 34.2 g/dl (32.0-36.0); PLATELET COUNT 320 K/uL (150-450); RED BLOOD COUNT 4.01 M/uL (4.00-6.00); RED CELL DISTRIBUTION WIDTH 14.1 % (11.5-14.5)
[2024-06-21 11:09] LABS: COVID-19 AG NEGATIVE (NEGATIVE)
[2024-06-21 11:11] LABS: INFLUENZA A AG NEGATIVE (NEGATIVE)
== END | disposition home or self-care (01) ==
LOC: ER 08:15
PROVIDERS: General Practice
DX: R05.8 Other specified cough (principal); R21 Rash and other nonspecific skin eruption; R05.9 Cough, unspecified; Z20.822 Contact with and (suspected) exposure to COVID-19; I10 Essential (primary) hypertension; E03.8 Other specified hypothyroidism

== ENCOUNTER → 2024-07-19 | Emergency (ER) | payer OTHER ==
[~2024-07-19] VITALS: Ht 152.4 cm; Wt 64.4 kg
[~2024-07-19] MED LIST changes: +ALBUTEROL2.5 MG/3 M IH; +BUDESONIDE0.5 MG/2 M IH; +COZAAR25 MG PO; +INDAPAMIDE1.25 MG PO; -IPRATROPIUM BROMIDE 0.5 MG/2.5 ML AMPUL.NEB IH SCH; +LOSARTAN POTASS50 MG PO; +PANTOPRAZOLE SO20 MG PO; +SINGULAIR10 MG PO
== END | disposition home or self-care (01) ==
LOC: ER 23:00
DX: Z53.21 Procedure and treatment not carried out due to patient leaving prior to being seen by health care provider (principal)

== ENCOUNTER 2024-07-23 05:27 | Emergency (ER) | payer OTHER ==
[~2024-07-23] VITALS: Ht 152.4 cm; Wt 64.4 kg
[2024-07-23 08:56] LABS: BASO % 0.7 % (0.1-1.2); EOS # 0.73 (0.04-0.54); EOS % 8.7 % (0.7-7.0); HEMOGLOBIN 12.1 g/dL (11.2-15.7); LYMPH # 1.89 (1.18-3.74); LYMPH % 22.5 % (19.3-53.1); MEAN CORPUSCULAR HEMOGLOBIN 28.3 pg (25.6-32.2); MONO # 0.53 (0.24-0.82); MONO % 6.3 % (4.7-12.5); NEUT # 5.16 (1.56-6.13); NEUT % 61.3 % (34.0-71.1); PLATELET COUNT 323 K/uL (163-369); RED BLOOD COUNT 4.28 M/uL (3.93-5.22); RED CELL DISTRIBUTION WIDTH 14.5 % (11.6-14.4)
[2024-07-23 09:13] LABS: URINE APPEARANCE Clear; URINE BILIRRUBIN Negative (NEGATIVE); URINE BLOOD Negative; URINE COLOR Yellow; URINE GLUCOSE Negative (NEGATIVE); URINE KETONE Negative (NEGATIVE); URINE LEUKOCYTE Negative; URINE NITRATE Negative; URINE PROTEIN Negative (NEGATIVE); URINE UROBILINOGEN 0.2 E.U./dl
[2024-07-23 09:14] LABS: URINE BACTERIA 50.1 uL (0.0-1933); URINE CAST 0.14 uL (0.0-1.40); URINE EPITHELIAL CELLS 6.6 uL (0.0-38.8); URINE RBC 3.8 uL (0.0-20.8); URINE WBC 6.3 uL (0.0-23.2)
[2024-07-23 09:21] LABS: CALCIUM 9.1 mg/dL (8.5-10.1); CREATININE SERUM 0.85 mg/dL (0.55-1.02); GFR 65.2; POTASSIUM 4.06 mEq/L (3.5-5.1)
[2024-07-23 10:15] LABS: INFLUENZA A AG NEGATIVE (NEGATIVE)
[2024-07-23 10:16] LABS: COVID-19 AG NEGATIVE (NEGATIVE)
== END 2024-07-23 10:56 | disposition home or self-care (01) ==
LOC: ER 05:27
PROVIDERS: General Practice
DX: R06.2 Wheezing (principal); R53.83 Other fatigue; I10 Essential (primary) hypertension; Z20.822 Contact with and (suspected) exposure to COVID-19

== ENCOUNTER → 2024-07-28 | Emergency (ER) | payer OTHER ==
[~2024-07-28] VITALS: Ht 152.4 cm; Wt 63.5 kg
== END | disposition left against medical advice (07) ==
LOC: ER 19:26
DX: Z53.21 Procedure and treatment not carried out due to patient leaving prior to being seen by health care provider (principal)

== ENCOUNTER 2024-07-30 11:19 | Outpatient (CLI) | payer OTHER | END 2024-07-30 11:25 | disposition home or self-care (01) | LOC: TOM 11:19 | PROVIDERS: ATTEND Internal Medicine Cardiovascular Disease | DX: R07.9 Chest pain, unspecified (principal); J44.9 Chronic obstructive pulmonary disease, unspecified; I10 Essential (primary) hypertension ==

== ENCOUNTER → 2024-08-01 | Emergency (ER) | payer OTHER ==
[~2024-08-01] VITALS: Ht 175.3 cm; Wt 63.5 kg
[~2024-08-01] MED LIST changes: +CETIRIZINE1 MG/1 ML PO; +Crestor 10MG TABLET PO; +LEVOTHYROXINE125 MCG PO; +PEPCID AC20 MG PO
== END | disposition left against medical advice (07) ==
LOC: ER 20:47
DX: Z53.21 Procedure and treatment not carried out due to patient leaving prior to being seen by health care provider (principal)

== ENCOUNTER → 2024-08-04 07:09 | Outpatient (CLI) | payer OTHER | END | disposition home or self-care (01) | LOC: NUCLEAR 07:00 | PROVIDERS: ATTEND Internal Medicine Cardiovascular Disease | DX: R07.9 Chest pain, unspecified (principal) | CPT/HCPCS: 78452; 93017; A9500; J0153 ==

== ENCOUNTER 2024-08-07 04:16 | Inpatient (IN) | payer OTHER ==
[~2024-08-07] VITALS: Ht 152.4 cm; Wt 63.5 kg
[~2024-08-07 04:16] MED LIST changes: -CETIRIZINE1 MG/1 ML PO; -Crestor 10MG TABLET PO; -LEVOTHYROXINE125 MCG PO; -PEPCID AC20 MG PO
--- NOTE | 2024-08-07 04:27 | NUR ---
SE RECIBE PACIENTE ALERTA Y ORIENTADA X 3 ESFERAS EN AMBULANCIA LA CUAL INDICA PRESENTO DOLOR DE ZACHERY YFN EL BRENDA DE KOREY Y QUE SE MIDIO LA PRESION ARTERIAL Y ESTABA ELEVADA. AL MOMENTO DEL TRIAGE NO REFIERE DOLOR. B/P:[id number].
[2024-08-07] MEDS ORDERED: METHYLPREDNISOLONE SOD SUCC 125 MG VIAL ONE (05:49)
[2024-08-07] MEDS ORDERED: METHYLPREDNISOLONE SOD SUCC 125 MG VIAL IV STA (05:49)
--- NOTE | 2024-08-07 05:55 | NUR ---
SE EDUCA A PTE SOBRE [place] MEDICO, SE RADHA MUESTRAS DE LABORATORIO UTILIZANDO MEDIDAS ASEPTICAS. SE COLOCA H/L DAKOTAH DE EDEMA. SE ADMINISTRA MEDICAMENTO SPEEDY ORDEN MEDICA. SE NOTIFICAN ABGS Y TERAPIAS PENDIENTES.
[2024-08-07] MEDS ORDERED: ALBUTEROL SULFATE 3 ML/2.5 MG AMPUL.NEB IH SCH (06:00)
[2024-08-07 06:18] LABS: BASO % 1.1 % (0.1-1.2); EOS # 0.78 (0.04-0.54); EOS % 10.7 % (0.7-7.0); HEMATOCRIT 36.4 % (34.1-44.9); HEMOGLOBIN 11.9 g/dL (11.2-15.7); LYMPH # 1.95 (1.18-3.74); LYMPH % 26.7 % (19.3-53.1); MONO # 0.52 (0.24-0.82); MONO % 7.1 % (4.7-12.5); NEUT # 3.92 (1.56-6.13); NEUT % 53.9 % (34.0-71.1); PLATELET COUNT 336 K/uL (163-369); RED BLOOD COUNT 4.25 M/uL (3.93-5.22); RED CELL DISTRIBUTION WIDTH 14.8 % (11.6-14.4)
[2024-08-07] MEDS ORDERED: ALBUTEROL SULFATE 3 ML/2.5 MG AMPUL.NEB IH ONE (06:21)
[2024-08-07 06:32] LABS: ABG PO2 102.9 mmHg (80-100); ABG pCO2 33.5 mmHg (35-45); BASE EXCESS 0.2 mmol/l; BICARBONATE 23.3 mmol/l (23-25); SaO2 98.2 %; Tco2 24.3 mmol/l
[2024-08-07 06:36] LABS: allen test SATISFACTORY; mode ROOM AIR; o2 21 %; puncture site RADIAL RIGHT
[2024-08-07 06:52] LABS: ALBUMIN 3.8 gm/dL (3.4-5.0); BILIRUBIN TOTAL 0.41 mg/dL (0.3-1.2); CALCIUM 9.2 mg/dL (8.5-10.1); CREATININE SERUM 0.77 mg/dL (0.55-1.02); GFR 73.08; POTASSIUM 4.09 mEq/L (3.5-5.1); TOTAL PROTEIN 7.8 gm/dL (6.4-8.2)
[2024-08-07 08:38] LABS: COVID-19 AG NEGATIVE (NEGATIVE); INFLUENZA A AG NEGATIVE (NEGATIVE); INFLUENZA B AG NEGATIVE (NEGATIVE)
[2024-08-07] MEDS ORDERED: CEFTRIAXONE SODIUM 1,000 MG in DEXTROSE 5 % IN WATER 100 ML IV SCH (16:08)
[2024-08-07] MEDS ORDERED: LOSARTAN POTASSIUM 50 MG TABLET PO SCH (16:10)
[2024-08-07] MEDS ORDERED: 0.9 % SODIUM CHLORIDE 1,000 ML IV SCH (16:15)
[2024-08-07] MEDS ORDERED: ACETAMINOPHEN 650 MG SUPP.RECT RECTAL PRN (16:15)
[2024-08-07 16:37] VITALS: BP 130/80
[2024-08-07] MEDS ORDERED: ROSUVASTATIN CALCIUM 10 MG TABLET PO SCH (17:00)
[2024-08-07] MEDS ORDERED: CETIRIZINE HCL 5 MG/5 ML ML PO SCH (17:00)
[2024-08-07] MEDS ORDERED: LACTOBACILLUS ACIDOPHILUS 1 CAP CAP PO SCH (17:00)
[2024-08-07] MEDS ORDERED: BENZONATATE 100 MG CAPSULE PO SCH (17:00)
[2024-08-07] MEDS ORDERED: IPRATROPIUM BROMIDE 0.5 MG/2.5 ML AMPUL.NEB IH SCH (17:00)
[2024-08-07] MEDS ORDERED: LEVALBUTEROL HCL 0.63 MG/3 ML SOLUTION IH SCH (17:00)
[2024-08-07] MEDS ORDERED: METHYLPREDNISOLONE SOD SUCC 40 MG VIAL IV SCH (17:00)
[2024-08-07] MEDS ORDERED: MONTELUKAST SODIUM 10 MG TABLET PO SCH (17:00)
[2024-08-07] MEDS ORDERED: BROMPHENIRAM/PHENYLEPHRINE/DM 5 ML BLIST.PACK PO SCH (17:00)
[2024-08-07] MEDS ORDERED: CEFTRIAXONE SODIUM 1,000 MG VIAL ONE (17:19)
[2024-08-07] MEDS ORDERED: METHYLPREDNISOLONE SOD SUCC 40 MG VIAL ONE (17:19)
[2024-08-07] MEDS ORDERED: GUAIFEN/DEXTROMETHORPHAN/PE 10 ML BLIST.PACK PO ONE (17:19)
[2024-08-07] MEDS ORDERED: BENZONATATE 100 MG CAPSULE PO ONE (17:19)
[2024-08-07] MEDS ORDERED: LACTOBACILLUS ACIDOPHILUS 1 CAP CAP PO ONE (17:20)
[2024-08-07 21:33] VITALS: BP 163/85
[2024-08-08 01:09] VITALS: BP 168/97; O2SAT 99
[2024-08-08] MEDS ORDERED: LEVOTHYROXINE SODIUM 100 MCG TABLET PO SCH (06:00)
[2024-08-08 06:29] LABS: BASO % 0.1 % (0.1-1.2); HEMATOCRIT 34.4 % (34.1-44.9); HEMOGLOBIN 11.6 g/dL (11.2-15.7); LYMPH # 1.15 (1.18-3.74); LYMPH % 12.1 % (19.3-53.1); MEAN CORPUSCULAR HEMOGLOBIN 28.7 pg (25.6-32.2); MONO # 0.18 (0.24-0.82); MONO % 1.9 % (4.7-12.5); NEUT # 8.02 (1.56-6.13); NEUT % 84.7 % (34.0-71.1); PLATELET COUNT 347 K/uL (163-369); RED BLOOD COUNT 4.04 M/uL (3.93-5.22); RED CELL DISTRIBUTION WIDTH 14.5 % (11.6-14.4)
[2024-08-08 06:55] LABS: ERYTHROCYTE SEDIMENTATION RATE 50 mm/hr (0-30)
[2024-08-08 07:11] LABS: PROTHROMBIN TIME 10.9 SECONDS (9.0-11.5)
[2024-08-08 07:53] LABS: ALBUMIN 3.7 gm/dL (3.4-5.0); BILIRUBIN TOTAL 0.26 mg/dL (0.3-1.2); CALCIUM 9.1 mg/dL (8.5-10.1); CREATININE SERUM 0.71 mg/dL (0.55-1.02); GFR 80.25; GLOBULINA 3.3 G/DL (2.4-3.5); POTASSIUM 4.63 mEq/L (3.5-5.1)
[2024-08-08 07:56] LABS: CHOL HDL RATIO 2.8 (0-5.0)
[2024-08-08 07:57] LABS: C-REACTIVE PROTEIN 0.3 MG/DL (0.00-0.29); TSH 38.6 uIU/mL (0.358-3.74)
[2024-08-08 08:55] VITALS: BP 150/82; O2SAT 95
[2024-08-08] MEDS ORDERED: PANTOPRAZOLE SODIUM 40 MG TABLET.DR PO SCH (09:00)
[2024-08-08] MEDS ORDERED: BENZONATATE 200 MG CAPSULE PO SCH (09:00)
[2024-08-08] MEDS ORDERED: INDAPAMIDE 1.25 MG TABLET PO SCH ×2 (09:00)
[2024-08-08] MEDS ORDERED: CEFTRIAXONE SODIUM 2,000 MG in 0.9 % SODIUM CHLORIDE 100 ML IV SCH (09:00)
[2024-08-08 10:00] LABS: PH,URINE 5.5 (5.0-8.0); URINE APPEARANCE Clear; URINE BILIRRUBIN Negative (NEGATIVE); URINE BLOOD Negative; URINE COLOR Yellow; URINE GLUCOSE Negative (NEGATIVE); URINE KETONE Negative (NEGATIVE); URINE LEUKOCYTE Negative; URINE NITRATE Negative; URINE PROTEIN Trace (NEGATIVE); URINE UROBILINOGEN 0.2 E.U./dl
[2024-08-08 10:01] LABS: URINE RBC 2.9 uL (0.0-20.8)
[2024-08-08 10:08] LABS: URINE BACTERIA 3.6 uL (0.0-1933)
[2024-08-08 13:00] VITALS: BP 130/66; O2SAT 96
[2024-08-08] MEDS ORDERED: FLUTICASONE PROPIONATE 50 MCG SPRAY NASAL SCH (17:00)
[2024-08-08] MEDS ORDERED: METHYLPREDNISOLONE SOD SUCC 40 MG VIAL IV SCH (17:00)
[2024-08-08 17:27] VITALS: BP 147/72; O2SAT 96
[2024-08-09] MEDS ORDERED: METHYLPREDNISOLONE SOD SUCC 40 MG VIAL IV SCH (01:00)
[2024-08-09 02:15] VITALS: BP 135/71; O2SAT 95
[2024-08-09 08:15] VITALS: BP 147/79; O2SAT 97
[2024-08-09 16:00] VITALS: BP 141/73; O2SAT 98
[2024-08-10 01:59] VITALS: BP 138/73; O2SAT 96
[2024-08-10] MEDS ORDERED: LEVOTHYROXINE SODIUM 125 MCG TABLET PO SCH (06:00)
[2024-08-10 08:08] LABS: T4 TOTAL 3.75 UG/DL (4.8-13.9)
[2024-08-10 08:09] LABS: TSH 83.1 uIU/mL (0.358-3.74)
[2024-08-10] MEDS ORDERED: TAMSULOSIN HCL 0.4 MG CAP PO SCH (09:00)
[2024-08-10 09:39] VITALS: BP 156/89; O2SAT 98
[2024-08-10 16:00] VITALS: BP 154/88; O2SAT 96
[2024-08-10] MEDS ORDERED: POLYETHYLENE GLYCOL 3350 17 GM BLIST.PACK PO SCH (21:00)
[2024-08-11 01:52] VITALS: BP 136/79; O2SAT 97
[2024-08-11 08:48] VITALS: BP 150/87; O2SAT 99
[2024-08-11] MEDS ORDERED: METHYLPREDNISOLONE SOD SUCC 40 MG VIAL IV SCH (09:00)
[2024-08-11 16:00] VITALS: BP 133/79
[2024-08-11] MEDS ORDERED: CLOTRIMAZOLE 10 MG TROCHE MM SCH (20:00)
[2024-08-11] MEDS ORDERED: LEVOTHYROXINE SODIUM 100 MCG/VIAL VIAL IV ONE (23:00)
[2024-08-12 01:17] VITALS: BP 146/91; O2SAT 98
[2024-08-12 08:52] VITALS: BP 145/80; O2SAT 99
[2024-08-12] MEDS ORDERED: LEVOTHYROXINE SODIUM 100 MCG/VIAL VIAL IV ONE (09:00)
[2024-08-12 16:37] VITALS: BP 120/73; BP 121/69; O2SAT 100; O2SAT 97
[2024-08-12] MEDS ORDERED: ROSUVASTATIN CALCIUM 10 MG TABLET PO SCH (17:00)
[2024-08-13 01:55] VITALS: BP 120/74; O2SAT 96
[2024-08-13] MEDS ORDERED: INDAPAMIDE1.25 MG PO ×2 (08:35)
[2024-08-13] MEDS ORDERED: Crestor 10MG TABLET PO ×2 (08:35)
[2024-08-13] MEDS ORDERED: CETIRIZINE1 MG/1 ML PO ×2 (08:35)
[2024-08-13] MEDS ORDERED: COZAAR50 MG PO ×2 (08:35)
[2024-08-13] MEDS ORDERED: PANTOPRAZOLE SO40 MG PO ×2 (08:35)
[2024-08-13] MEDS ORDERED: PEPCID AC20 MG PO ×2 (08:35)
[2024-08-13] MEDS ORDERED: LEVOTHYROXINE125 MCG PO ×2 (08:35)
[2024-08-13 09:05] VITALS: BP 146/78; O2SAT 96
== END 2024-08-13 09:54 | disposition home or self-care (01) | DRG 202 ==
LOC: ER 04:16 → MEDI 17:02
PROVIDERS: General Practice; Internal Medicine Geriatric Medicine; ADMIT Internal Medicine; ATTEND Internal Medicine
PROC: 3E0F7GC Introduction of Other Therapeutic Substance into Respiratory Tract, Via Natural or Artificial Opening (ICD-10-PCS; principal; 2024-08-08)
PROC: BG44ZZZ Ultrasonography of Thyroid Gland (ICD-10-PCS; 2024-08-11)
DX: J45.902 Unspecified asthma with status asthmaticus (principal); B37.0 Candidal stomatitis; T65.6X1A Toxic effect of paints and dyes, not elsewhere classified, accidental (unintentional), initial encounter; Y92.038 Other place in apartment as the place of occurrence of the external cause; J02.9 Acute pharyngitis, unspecified; J30.9 Allergic rhinitis, unspecified; K59.09 Other constipation; R33.8 Other retention of urine; E89.0 Postprocedural hypothyroidism; F41.8 Other specified anxiety disorders; E78.5 Hyperlipidemia, unspecified

== ENCOUNTER → 2024-08-18 | Emergency (ER) | payer OTHER ==
[~2024-08-18] VITALS: Ht 152.4 cm; Wt 63.5 kg
[~2024-08-18] MED LIST changes: +CETIRIZINE1 MG/1 ML PO; +Crestor 10MG TABLET PO; +LEVOTHYROXINE125 MCG PO; +PEPCID AC20 MG PO
== END | disposition left against medical advice (07) ==
LOC: ER 20:42
DX: Z53.21 Procedure and treatment not carried out due to patient leaving prior to being seen by health care provider (principal)

== ENCOUNTER → 2024-08-24 | Emergency (ER) | payer OTHER | END | disposition left against medical advice (07) | LOC: ER 15:00 | DX: Z53.21 Procedure and treatment not carried out due to patient leaving prior to being seen by health care provider (principal) ==

== ENCOUNTER → 2024-10-11 | Emergency (ER) | payer OTHER | END | disposition left against medical advice (07) | LOC: ER 20:25 | DX: Z53.21 Procedure and treatment not carried out due to patient leaving prior to being seen by health care provider (principal) ==

== ENCOUNTER 2024-10-25 10:57 | Emergency (ER) | payer OTHER ==
[~2024-10-25] VITALS: Ht 152.4 cm; Wt 68.0 kg
[2024-10-25] MEDS ORDERED: METHYLPREDNISOLONE SOD SUCC 40 MG VIAL IV ONE (11:45)
[2024-10-25] MEDS ORDERED: IPRATROPIUM/ALBUTEROL SULFATE 3 ML AMPUL.NEB IH ONE (11:45)
[2024-10-25 12:15] LABS: BASO % 1.0 % (0.1-1.2); EOS # 0.73 (0.04-0.54); EOS % 10.7 % (0.7-7.0); LYMPH # 1.23 (1.18-3.74); LYMPH % 18.1 % (19.3-53.1); MEAN PLATELET VOLUME 9.70 fl (9.4-12.4); MONO # 0.49 (0.24-0.82); MONO % 7.2 % (4.7-12.5); NEUT # 4.27 (1.56-6.13); NEUT % 62.9 % (34.0-71.1); RED CELL DISTRIBUTION WIDTH 13.1 % (11.6-14.4)
[2024-10-25 12:37] LABS: BUN CREA RATIO 21.0 (7.0-25.0); CREATININE SERUM 0.77 mg/dL (0.55-1.02); GFR 73.08; GLUCOSE FASTING 105.0 mg/dL (65-100); OSMOLALITY SERUM 283.0 MOSM/KG (275-295)
== END 2024-10-25 13:56 | disposition home or self-care (01) ==
LOC: ER 10:57
PROVIDERS: Emergency Medicine
DX: J45.901 Unspecified asthma with (acute) exacerbation (principal)

== ENCOUNTER 2024-10-28 14:41 | Emergency (ER) | payer OTHER ==
[~2024-10-28] VITALS: Ht 152.4 cm; Wt 68.0 kg
== END 2024-10-29 08:14 | disposition left against medical advice (07) ==
LOC: ER 14:41
DX: Z53.21 Procedure and treatment not carried out due to patient leaving prior to being seen by health care provider (principal)

== ENCOUNTER → 2024-11-19 | Emergency (ER) | payer OTHER ==
[~2024-11-19] VITALS: Ht 152.4 cm; Wt 68.0 kg
[2024-11-19 06:59] VITALS: BP 128/79; O2SAT 99
== END | disposition left against medical advice (07) ==
LOC: ER 06:29
DX: Z53.21 Procedure and treatment not carried out due to patient leaving prior to being seen by health care provider (principal)

== ENCOUNTER 2024-11-22 07:31 | Outpatient (CLI) | payer OTHER ==
[2024-11-22 09:27] LABS: URINE APPEARANCE Clear; URINE BILIRRUBIN Negative (NEGATIVE); URINE BLOOD Negative; URINE COLOR Yellow; URINE GLUCOSE Negative (NEGATIVE); URINE KETONE Trace (NEGATIVE); URINE LEUKOCYTE Negative; URINE NITRATE Negative; URINE PROTEIN Negative (NEGATIVE); URINE UROBILINOGEN 0.2 E.U./dl
[2024-11-22 09:29] LABS: BASO % 1.0 % (0.1-1.2); EOS # 0.66 (0.04-0.54); EOS % 11.4 % (0.7-7.0); LYMPH # 1.55 (1.18-3.74); LYMPH % 26.7 % (19.3-53.1); MEAN PLATELET VOLUME 10.10 fl (9.4-12.4); MONO # 0.47 (0.24-0.82); MONO % 8.1 % (4.7-12.5); NEUT # 3.03 (1.56-6.13); NEUT % 52.3 % (34.0-71.1); RED CELL DISTRIBUTION WIDTH 13.1 % (11.6-14.4)
[2024-11-22 09:32] LABS: URINE BACTERIA 123.6 uL (0.0-1933); URINE EPITHELIAL CELLS 26.5 uL (0.0-38.8); URINE RBC 4.6 uL (0.0-20.8); URINE WBC 8.6 uL (0.0-23.2)
[2024-11-22 09:39] LABS: URINE CAST 0.00 uL (0.0-1.40)
[2024-11-22 10:19] LABS: BUN CREA RATIO 25.0 (7.0-25.0); CHOL HDL RATIO 3.6 (0-5.0); CREATININE SERUM 0.64 mg/dL (0.55-1.02); GFR 90.46; GLUCOSE FASTING 91.0 mg/dL (65-100); HDL 60.0 mg/dl (40-60); LDL 127.0 mg/dl (0-130); OSMOLALITY SERUM 284.0 MOSM/KG (275-295); T4 TOTAL 11.37 UG/DL (4.8-13.9); TSH 0.426 uIU/mL (0.358-3.74); VLDL 28.0 (0-39)
== END 2024-11-22 07:35 | disposition home or self-care (01) ==
LOC: LAB 07:31
PROVIDERS: ATTEND Internal Medicine Cardiovascular Disease
DX: E03.9 Hypothyroidism, unspecified (principal); E78.2 Mixed hyperlipidemia; I10 Essential (primary) hypertension; R73.03 Prediabetes

== ENCOUNTER 2025-01-01 07:15 | Inpatient (IN) | payer OTHER ==
[~2025-01-01] VITALS: Ht 157.5 cm; Wt 72.6 kg
[2025-01-01] MEDS ORDERED: ONDANSETRON HCL 2 MG/ML VIAL IV ONE (07:45)
[2025-01-01] MEDS ORDERED: 0.9 % SODIUM CHLORIDE 1,000 ML IV ONE (07:45)
[2025-01-01] MEDS ORDERED: FAMOtidine 10 MG/ML (4ML VIAL) IV ONE (07:45)
[2025-01-01 08:27] LABS: BASO % 0.6 % (0.1-1.2); EOS # 0.42 (0.04-0.54); EOS % 6.2 % (0.7-7.0); LYMPH # 1.95 (1.18-3.74); LYMPH % 28.7 % (19.3-53.1); MEAN PLATELET VOLUME 9.90 fl (9.4-12.4); MONO # 0.41 (0.24-0.82); MONO % 6.0 % (4.7-12.5); NEUT # 3.89 (1.56-6.13); NEUT % 57.3 % (34.0-71.1); RED CELL DISTRIBUTION WIDTH 14.6 % (11.6-14.4)
[2025-01-01 08:30] LABS: INR 0.99
[2025-01-01 08:36] LABS: ALT/SGPT 33.0 U/L (12-78); AST/SGOT 26.0 U/L (15-37); BILIRUBIN TOTAL 0.34 mg/dL (0.3-1.2); BUN CREA RATIO 34.0 (7.0-25.0); CREATININE SERUM 0.73 mg/dL (0.55-1.02); GFR 77.72; GLOBULINA 3.0 G/DL (2.4-3.5); GLUCOSE FASTING 143.0 mg/dL (65-100); OSMOLALITY SERUM 286.0 MOSM/KG (275-295)
[2025-01-01] MEDS ORDERED: PROTONIX40 MG PO (10:30)
[2025-01-01] MEDS ORDERED: ZOFRAN8 MG PO (10:30)
[2025-01-01] MEDS ORDERED: ONDANSETRON HCL 4 MG in 0.9 % SODIUM CHLORIDE 50 ML IV PRN (18:00)
[2025-01-01] MEDS ORDERED: 0.9 % SODIUM CHLORIDE 1,000 ML IV SCH (18:00)
[2025-01-01] MEDS ORDERED: hydrALAZINE HCL 20 MG VIAL IV PRN (18:15)
[2025-01-01 18:16] VITALS: BP 100/70
[2025-01-02 03:13] VITALS: BP 109/66; O2SAT 98
[2025-01-02] MEDS ORDERED: LEVOTHYROXINE SODIUM 125 MCG TABLET PO SCH (06:00)
[2025-01-02 07:21] LABS: CHOL HDL RATIO 3.5 (0-5.0); HDL 62.0 mg/dl (40-60); LDL 136.0 mg/dl (0-130); VLDL 18.0 (0-39)
[2025-01-02 07:22] LABS: TSH 0.02 uIU/mL (0.358-3.74)
[2025-01-02] MEDS ORDERED: ATORVASTATIN CALCIUM 40 MG TABLET PO SCH (09:00)
[2025-01-02] MEDS ORDERED: LOSARTAN POTASSIUM 50 MG TABLET PO SCH (09:00)
[2025-01-02] MEDS ORDERED: FAMOTIDINE/PF 20 MG/2 ML VIAL IV SCH (09:00)
[2025-01-02 09:01] VITALS: BP 151/76; O2SAT 98
[2025-01-02 18:44] VITALS: BP 126/62
[2025-01-03 03:45] VITALS: BP 142/64; O2SAT 98
[2025-01-03 08:50] VITALS: BP 153/89; O2SAT 96
[2025-01-03] MEDS ORDERED: ONDANSETRON HCL 4 MG in 0.9 % SODIUM CHLORIDE 50 ML IV PRN (12:00)
[2025-01-03] MEDS ORDERED: 0.9 % SODIUM CHLORIDE 1,000 ML IV SCH (12:00)
[2025-01-03] MEDS ORDERED: hydrALAZINE HCL 20 MG VIAL IV PRN (12:00)
[2025-01-03] MEDS ORDERED: SYNTHROID100 MCG PO (16:23)
[2025-01-03 16:47] VITALS: BP 130/78; O2SAT 99
[2025-01-04] MEDS ORDERED: LEVOTHYROXINE SODIUM 125 MCG TABLET PO SCH (06:00)
[2025-01-04] MEDS ORDERED: LEVOTHYROXINE SODIUM 100 MCG TABLET PO SCH (06:00)
[2025-01-04] MEDS ORDERED: FAMOTIDINE/PF 20 MG/2 ML VIAL IV SCH (09:00)
[2025-01-04] MEDS ORDERED: ATORVASTATIN CALCIUM 40 MG TABLET PO SCH (09:00)
[2025-01-04] MEDS ORDERED: LOSARTAN POTASSIUM 50 MG TABLET PO SCH (09:00)
== END 2025-01-03 18:00 | disposition home or self-care (01) | DRG 57 ==
LOC: ER 07:15 → MEDI 19:16
PROVIDERS: General Practice; ADMIT Internal Medicine; ATTEND Internal Medicine
PROC: 4A12X4Z Monitoring of Cardiac Electrical Activity, External Approach (ICD-10-PCS; principal; 2025-01-01)
PROC: B246ZZZ Ultrasonography of Right and Left Heart (ICD-10-PCS; 2025-01-01)
PROC: B345ZZZ Ultrasonography of Bilateral Common Carotid Arteries (ICD-10-PCS; 2025-01-01)
PROC: B348ZZZ Ultrasonography of Bilateral Internal Carotid Arteries (ICD-10-PCS; 2025-01-01)
PROC: B020ZZZ Computerized Tomography (CT Scan) of Brain (ICD-10-PCS; 2025-01-01)
PROC: B030ZZZ Magnetic Resonance Imaging (MRI) of Brain (ICD-10-PCS; 2025-01-01)
DX: G31.89 Other specified degenerative diseases of nervous system (principal); R55 Syncope and collapse; R41.82 Altered mental status, unspecified; I65.23 Occlusion and stenosis of bilateral carotid arteries; I10 Essential (primary) hypertension; E03.9 Hypothyroidism, unspecified; E78.5 Hyperlipidemia, unspecified
CPT/HCPCS: 70551

== ENCOUNTER → 2025-01-09 | Emergency (ER) | payer OTHER ==
[~2025-01-09] MED LIST changes: +INTESTINEX680 M1 PO; +LEVSIN0.125 MG PO; +PROTONIX40 MG PO; +QUESTRAN PACKET4 GM PO; +ZOFRAN8 MG PO
== END | disposition left against medical advice (07) ==
LOC: ER 17:13
DX: Z53.21 Procedure and treatment not carried out due to patient leaving prior to being seen by health care provider (principal)

== ENCOUNTER 2025-01-10 09:23 | Emergency (ER) | payer OTHER ==
[~2025-01-10] VITALS: Ht 152.4 cm; Wt 63.5 kg
[~2025-01-10 09:23] MED LIST changes: -INTESTINEX680 M1 PO; -LEVSIN0.125 MG PO; -QUESTRAN PACKET4 GM PO
[2025-01-10] MEDS ORDERED: ACETAMINOPHEN 500 MG GEL..CAP PO ONE ×2 (10:00→10:05)
[2025-01-10] MEDS ORDERED: 0.9 % SODIUM CHLORIDE 1,000 ML IV SCH (10:00)
[2025-01-10] MEDS ORDERED: FAMOtidine 10 MG/ML (4ML VIAL) IV PUSH ONE (10:00)
[2025-01-10] MEDS ORDERED: ONDANSETRON HCL 4 MG in 0.9 % SODIUM CHLORIDE 50 ML IV ONE (10:00)
[2025-01-10] MEDS ORDERED: FAMOTIDINE/PF 20 MG/2 ML VIAL ONE (10:05)
[2025-01-10] MEDS ORDERED: ONDANSETRON HCL 2 MG/ML VIAL ONE (10:05)
[2025-01-10 10:38] LABS: BASO % 0.8 % (0.1-1.2); EOS # 0.31 (0.04-0.54); EOS % 4.8 % (0.7-7.0); LYMPH # 1.60 (1.18-3.74); LYMPH % 24.8 % (19.3-53.1); MEAN PLATELET VOLUME 9.60 fl (9.4-12.4); MONO # 0.65 (0.24-0.82); MONO % 10.1 % (4.7-12.5); NEUT # 3.82 (1.56-6.13); NEUT % 59.2 % (34.0-71.1); RED CELL DISTRIBUTION WIDTH 15.0 % (11.6-14.4)
[2025-01-10 11:07] LABS: INR 0.98
[2025-01-10 11:15] LABS: ALT/SGPT 22.0 U/L (12-78); AST/SGOT 19.0 U/L (15-37); BILIRUBIN TOTAL 0.38 mg/dL (0.3-1.2); BUN CREA RATIO 33.0 (7.0-25.0); CREATININE SERUM 0.81 mg/dL (0.55-1.02); GFR 68.93; GLOBULINA 3.7 G/DL (2.4-3.5); GLUCOSE FASTING 98.0 mg/dL (65-100); OSMOLALITY SERUM 284.0 MOSM/KG (275-295)
[2025-01-10 11:53] LABS: URINE APPEARANCE Clear; URINE BILIRRUBIN Negative (NEGATIVE); URINE BLOOD Negative; URINE COLOR Yellow; URINE GLUCOSE Negative (NEGATIVE); URINE KETONE Negative (NEGATIVE); URINE LEUKOCYTE Negative; URINE NITRATE Negative; URINE PROTEIN Negative (NEGATIVE); URINE UROBILINOGEN 0.2 E.U./dl
[2025-01-10 11:56] LABS: URINE BACTERIA 173.9 uL (0.0-1933); URINE EPITHELIAL CELLS 6.9 uL (0.0-38.8); URINE RBC 3.6 uL (0.0-20.8); URINE WBC 4.6 uL (0.0-23.2)
[2025-01-10 12:12] LABS: URINE CAST 1.02 uL (0.0-1.40)
== END 2025-01-10 17:54 | disposition home or self-care (01) ==
LOC: ER 09:23
PROVIDERS: General Practice
DX: R55 Syncope and collapse (principal); I10 Essential (primary) hypertension; E03.8 Other specified hypothyroidism; K21.9 Gastro-esophageal reflux disease without esophagitis
CPT/HCPCS: 36415; 70450; 71045; 93005; 96365; 96366; 99284; J2405; J3490; J7030

== ENCOUNTER 2025-01-10 21:54 | Emergency (ER) | payer OTHER ==
[~2025-01-10] VITALS: Ht 152.4 cm; Wt 63.5 kg
[2025-01-11] MEDS ORDERED: KETOROLAC TROMETHAMINE 15 MG VIAL IV STA (02:56)
[2025-01-12] MEDS ORDERED: PEPCID AC20 MG PO (16:12)
[2025-01-12] MEDS ORDERED: ZOFRAN8 MG PO (16:12)
[2025-01-12] MEDS ORDERED: CIPRO500 MG PO (16:12)
[2025-01-12] MEDS ORDERED: LEVSIN0.125 MG PO (16:12)
[2025-01-12] MEDS ORDERED: INTESTINEX680 M1 PO (16:12)
== END 2025-01-11 03:11 | disposition home or self-care (01) ==
LOC: ER 21:54
DX: R55 Syncope and collapse (principal)

== ENCOUNTER 2025-01-12 07:01 | Emergency (ER) | payer OTHER ==
[~2025-01-12] VITALS: Ht 160 cm; Wt 63.5 kg
[2025-01-12] MEDS ORDERED: CIPROFLOXACIN IN 5 % DEXTROSE 400 MG/200 ML PIGGYBAG IV ONE ×2 (08:05→08:15)
[2025-01-12] MEDS ORDERED: ONDANSETRON HCL 2 MG/ML VIAL ONE (08:05)
[2025-01-12] MEDS ORDERED: FAMOTIDINE/PF 20 MG/2 ML VIAL ONE (08:06)
[2025-01-12] MEDS ORDERED: FAMOtidine 10 MG/ML (4ML VIAL) IV ONE (08:15)
[2025-01-12] MEDS ORDERED: ONDANSETRON HCL 2 MG/ML VIAL IV ONE (08:15)
[2025-01-12] MEDS ORDERED: 0.9 % SODIUM CHLORIDE 1,000 ML IV ONE (08:15)
[2025-01-12 09:14] LABS: BASO % 0.2 % (0.1-1.2); EOS # 0.10 (0.04-0.54); EOS % 0.8 % (0.7-7.0); LYMPH # 0.72 (1.18-3.74); LYMPH % 5.9 % (19.3-53.1); MEAN PLATELET VOLUME 9.80 fl (9.4-12.4); MONO # 0.41 (0.24-0.82); MONO % 3.4 % (4.7-12.5); NEUT # 10.93 (1.56-6.13); NEUT % 89.4 % (34.0-71.1); RED CELL DISTRIBUTION WIDTH 15.0 % (11.6-14.4)
[2025-01-12 10:04] LABS: COVID-19 AG NEGATIVE (NEGATIVE)
[2025-01-12 10:06] LABS: ALT/SGPT 30.0 U/L (12-78); AST/SGOT 23.0 U/L (15-37); BILIRUBIN TOTAL 0.49 mg/dL (0.3-1.2); BUN CREA RATIO 29.0 (7.0-25.0); CREATININE SERUM 0.9 mg/dL (0.55-1.02); GFR 61.04; GLOBULINA 4.3 G/DL (2.4-3.5); GLUCOSE FASTING 115.0 mg/dL (65-100); OSMOLALITY SERUM 279.0 MOSM/KG (275-295)
[2025-01-12 10:15] LABS: URINE APPEARANCE Clear; URINE BILIRRUBIN Negative (NEGATIVE); URINE BLOOD Negative; URINE COLOR Yellow; URINE GLUCOSE Negative (NEGATIVE); URINE KETONE 15 (NEGATIVE); URINE LEUKOCYTE Trace; URINE NITRATE Negative; URINE PROTEIN Negative (NEGATIVE); URINE UROBILINOGEN 0.2 E.U./dl
[2025-01-12 10:20] LABS: URINE BACTERIA 290.4 uL (0.0-1933); URINE EPITHELIAL CELLS 39.0 uL (0.0-38.8); URINE RBC 6.5 uL (0.0-20.8); URINE WBC 8.0 uL (0.0-23.2)
[2025-01-12 10:29] LABS: URINE CAST 0.87 uL (0.0-1.40)
[2025-01-12] MEDS ORDERED: CIPRO500 MG PO (16:12)
[2025-01-12] MEDS ORDERED: PEPCID AC20 MG PO (16:12)
[2025-01-12] MEDS ORDERED: LEVSIN0.125 MG PO (16:12)
[2025-01-12] MEDS ORDERED: ZOFRAN8 MG PO (16:12)
[2025-01-12] MEDS ORDERED: INTESTINEX680 M1 PO (16:12)
[2025-01-13] MEDS ORDERED: QUESTRAN PACKET4 GM PO (18:45)
== END 2025-01-12 16:41 | disposition home or self-care (01) ==
LOC: ER 07:02
PROVIDERS: General Practice
DX: K52.9 Noninfective gastroenteritis and colitis, unspecified (principal); R11.10 Vomiting, unspecified; I10 Essential (primary) hypertension; E03.8 Other specified hypothyroidism; Z20.822 Contact with and (suspected) exposure to COVID-19

== ENCOUNTER 2025-01-13 18:27 | Emergency (ER) | payer OTHER ==
[~2025-01-13] VITALS: Ht 162.6 cm; Wt 68.0 kg
[~2025-01-13 18:27] MED LIST changes: +INTESTINEX680 M1 PO; +LEVSIN0.125 MG PO
[2025-01-13 18:31] VITALS: BP 118/77; O2SAT 99
[2025-01-13] MEDS ORDERED: ONDANSETRON HCL 2 MG/ML VIAL IM ONE (18:45)
[2025-01-13] MEDS ORDERED: FAMOtidine 10 MG/ML (4ML VIAL) IV PUSH ONE (18:45)
[2025-01-13] MEDS ORDERED: BISMUTH SUBSALICYLATE 524 MG/30 ML BLIST.PACK PO ONE ×2 (18:45→19:14)
[2025-01-13] MEDS ORDERED: QUESTRAN PACKET4 GM PO (18:45)
[2025-01-13] MEDS ORDERED: ONDANSETRON HCL 2 MG/ML VIAL ONE (19:14)
[2025-01-13] MEDS ORDERED: FAMOTIDINE/PF 20 MG/2 ML VIAL ONE (19:15)
== END 2025-01-13 19:32 | disposition home or self-care (01) ==
LOC: ER 18:27 → EDBD 18:27 → ER 19:04
DX: R19.7 Diarrhea, unspecified (principal); R51.9 Headache, unspecified; I10 Essential (primary) hypertension
CPT/HCPCS: 96365; 96372; 99282; J2405; J3490

== ENCOUNTER 2025-01-14 06:42 | Emergency (ER) | payer OTHER ==
[~2025-01-14] VITALS: Ht 152.4 cm; Wt 63.5 kg
[~2025-01-14 06:42] MED LIST changes: +QUESTRAN PACKET4 GM PO
[2025-01-14] MEDS ORDERED: LACTOBACILLUS ACIDOPHILUS 1 CAP CAP PO STA (07:34)
[2025-01-14] MEDS ORDERED: 0.9 % SODIUM CHLORIDE 1,000 ML IV STA (07:35)
[2025-01-14] MEDS ORDERED: LACTOBACILLUS ACIDOPHILUS 1 CAP CAP PO ONE (08:15)
[2025-01-14 08:42] VITALS: BP 116/69; O2SAT 97
[2025-01-14 09:12] LABS: BASO % 0.3 % (0.1-1.2); EOS # 0.08 (0.04-0.54); EOS % 1.3 % (0.7-7.0); LYMPH # 0.66 (1.18-3.74); LYMPH % 10.5 % (19.3-53.1); MEAN PLATELET VOLUME 10.20 fl (9.4-12.4); MONO # 0.48 (0.24-0.82); MONO % 7.6 % (4.7-12.5); NEUT # 5.00 (1.56-6.13); NEUT % 79.5 % (34.0-71.1); RED CELL DISTRIBUTION WIDTH 14.8 % (11.6-14.4)
[2025-01-14 10:14] LABS: ALT/SGPT 26.0 U/L (12-78); AST/SGOT 35.0 U/L (15-37); BILIRUBIN TOTAL 0.48 mg/dL (0.3-1.2); BUN CREA RATIO 17.0 (7.0-25.0); CREATININE SERUM 1.03 mg/dL (0.55-1.02); GFR 52.24; GLOBULINA 3.6 G/DL (2.4-3.5); GLUCOSE FASTING 91.0 mg/dL (65-100); OSMOLALITY SERUM 262.0 MOSM/KG (275-295)
== END 2025-01-14 12:39 | disposition home or self-care (01) ==
LOC: ER 06:42
PROVIDERS: General Practice
DX: K52.89 Other specified noninfective gastroenteritis and colitis (principal)

== ENCOUNTER → 2025-01-17 | Emergency (ER) | payer OTHER ==
[~2025-01-17] MED LIST changes: +PROTONIX20 MG PO
== END | disposition home or self-care (01) ==
LOC: ER 20:17
DX: R42 Dizziness and giddiness (principal); M54.2 Cervicalgia; M62.838 Other muscle spasm

== ENCOUNTER 2025-01-22 00:16 | Emergency (ER) | payer OTHER ==
[~2025-01-22] VITALS: Ht 170.2 cm; Wt 77.1 kg
[~2025-01-22 00:16] MED LIST changes: -PROTONIX20 MG PO
[2025-01-22] MEDS ORDERED: PROTONIX20 MG PO (00:25)
[2025-01-22] MEDS ORDERED: KETOROLAC TROMETHAMINE 10 MG TABLET PO STA (01:59)
[2025-01-22] MEDS ORDERED: KETOROLAC TROMETHAMINE 10 MG TABLET PO ONE (02:18)
[2025-01-22 02:52] LABS: BASO % 0.4 % (0.1-1.2); EOS # 0.25 (0.04-0.54); EOS % 3.3 % (0.7-7.0); LYMPH # 2.95 (1.18-3.74); LYMPH % 39.1 % (19.3-53.1); MEAN PLATELET VOLUME 9.40 fl (9.4-12.4); MONO # 0.75 (0.24-0.82); MONO % 9.9 % (4.7-12.5); NEUT # 3.52 (1.56-6.13); NEUT % 46.8 % (34.0-71.1); RED CELL DISTRIBUTION WIDTH 14.8 % (11.6-14.4)
[2025-01-22 03:10] LABS: BUN CREA RATIO 26.0 (7.0-25.0); CREATININE SERUM 0.66 mg/dL (0.55-1.02); GFR 87.31; GLUCOSE FASTING 106.0 mg/dL (65-100); OSMOLALITY SERUM 278.0 MOSM/KG (275-295)
[2025-01-22 03:35] LABS: URINE APPEARANCE Clear; URINE BILIRRUBIN Negative (NEGATIVE); URINE BLOOD Negative; URINE COLOR Yellow; URINE GLUCOSE Negative (NEGATIVE); URINE KETONE Negative (NEGATIVE); URINE LEUKOCYTE Negative; URINE NITRATE Negative; URINE PROTEIN Negative (NEGATIVE); URINE UROBILINOGEN 0.2 E.U./dl
[2025-01-22 03:38] LABS: URINE BACTERIA 29.9 uL (0.0-1933); URINE EPITHELIAL CELLS 3.3 uL (0.0-38.8); URINE WBC 3.6 uL (0.0-23.2)
[2025-01-22 03:41] LABS: URINE CAST 0.43 uL (0.0-1.40); URINE RBC 0.4 uL (0.0-20.8)
[2025-01-22] MEDS ORDERED: MECLIZINE HCL25 MG PO (04:34)
== END 2025-01-22 04:44 ==
LOC: ER 00:16
PROVIDERS: General Practice
DX: R42 Dizziness and giddiness (principal); E03.8 Other specified hypothyroidism; K08.89 Other specified disorders of teeth and supporting structures

== ENCOUNTER 2025-02-01 15:04 | Emergency (ER) | payer OTHER ==
[~2025-02-01] VITALS: Ht 152.4 cm; Wt 68.0 kg
[~2025-02-01 15:04] MED LIST changes: +MECLIZINE HCL25 MG PO; +PROTONIX20 MG PO
[2025-02-01] MEDS ORDERED: KETOROLAC TROMETHAMINE 30 MG VIAL IM STA (16:28)
[2025-02-01] MEDS ORDERED: DEXAMETHASONE SODIUM PHOSPHATE 4 MG/ML VIAL IM STA (16:29)
== END 2025-02-01 19:40 | disposition home or self-care (01) ==
LOC: ER 15:04
DX: M25.561 Pain in right knee (principal)
CPT/HCPCS: 73560; 96372; 99283; J1100; J1885

== ENCOUNTER → 2025-02-05 | Emergency (ER) | payer OTHER ==
[~2025-02-05] VITALS: Ht 152.4 cm; Wt 65.8 kg
[~2025-02-05] MED LIST changes: +CEFTRIAXONE SODIUM 1,000 MG VIAL IM STA; +CEFTRIAXONE SODIUM 1,000 MG VIAL ONE; +FAMOTIDINE/PF 20 MG/2 ML VIAL ONE; +KETOROLAC TROMETHAMINE 60 MG VIAL IM ONE; +KETOROLAC TROMETHAMINE 60 MG VIAL IM STA
== END | disposition left against medical advice (07) ==
LOC: ER 16:20
DX: K08.89 Other specified disorders of teeth and supporting structures (principal); I10 Essential (primary) hypertension

== ENCOUNTER → 2025-02-09 | Emergency (ER) | payer OTHER ==
[~2025-02-09] MED LIST changes: -CEFTRIAXONE SODIUM 1,000 MG VIAL IM STA; -CEFTRIAXONE SODIUM 1,000 MG VIAL ONE; -FAMOTIDINE/PF 20 MG/2 ML VIAL ONE; -KETOROLAC TROMETHAMINE 60 MG VIAL IM ONE; -KETOROLAC TROMETHAMINE 60 MG VIAL IM STA
== END | disposition left against medical advice (07) ==
LOC: ER 17:48
DX: Z53.21 Procedure and treatment not carried out due to patient leaving prior to being seen by health care provider (principal)

== ENCOUNTER → 2025-02-12 07:57 | Outpatient (CLI) | payer OTHER ==
[2025-02-12 09:02] LABS: URINE APPEARANCE Cloudy; URINE BILIRRUBIN Negative (NEGATIVE); URINE BLOOD Negative; URINE COLOR Dark Yellow; URINE GLUCOSE Negative (NEGATIVE); URINE KETONE Trace (NEGATIVE); URINE LEUKOCYTE Trace; URINE NITRATE Negative; URINE PROTEIN Negative (NEGATIVE); URINE UROBILINOGEN 0.2 E.U./dl
[2025-02-12 09:05] LABS: URINE BACTERIA 871.6 uL (0.0-1933); URINE CAST 3.82 uL (0.0-1.40); URINE EPITHELIAL CELLS 166.3 uL (0.0-38.8); URINE RBC 3.1 uL (0.0-20.8); URINE WBC 30.1 uL (0.0-23.2)
[2025-02-12 09:41] LABS: BASO % 0.8 % (0.1-1.2); EOS # 0.32 (0.04-0.54); EOS % 4.3 % (0.7-7.0); LYMPH # 1.88 (1.18-3.74); LYMPH % 25.5 % (19.3-53.1); MEAN PLATELET VOLUME 10.40 fl (9.4-12.4); MONO # 0.57 (0.24-0.82); MONO % 7.7 % (4.7-12.5); NEUT # 4.47 (1.56-6.13); NEUT % 60.8 % (34.0-71.1); RED CELL DISTRIBUTION WIDTH 15.9 % (11.6-14.4)
[2025-02-12 10:38] LABS: ALT/SGPT 31.0 U/L (12-78); AST/SGOT 22.0 U/L (15-37); BILIRUBIN TOTAL 0.6 mg/dL (0.3-1.2); BUN CREA RATIO 29.0 (7.0-25.0); CHOL HDL RATIO 3.8 (0-5.0); CREATININE SERUM 0.82 mg/dL (0.55-1.02); GFR 67.96; GLOBULINA 3.3 G/DL (2.4-3.5); GLUCOSE FASTING 91.0 mg/dL (65-100); HDL 68.0 mg/dl (40-60); LDL 163.0 mg/dl (0-130); OSMOLALITY SERUM 283.0 MOSM/KG (275-295); T4 TOTAL 10.78 UG/DL (4.8-13.9); TSH 1.63 uIU/mL (0.358-3.74); VLDL 26.0 (0-39)
[2025-02-12 11:21] LABS: T3 TOTAL 0.919 ng/ml (0.846-2.02); VITAMIN D3 25 HYDROXY 35.63 ng/ml (30-120)
== END | disposition home or self-care (01) ==
LOC: LAB 07:57
PROVIDERS: ATTEND Internal Medicine Cardiovascular Disease
DX: I10 Essential (primary) hypertension (principal); E03.9 Hypothyroidism, unspecified; E78.2 Mixed hyperlipidemia; D64.0 Hereditary sideroblastic anemia; Z12.11 Encounter for screening for malignant neoplasm of colon; E55.9 Vitamin D deficiency, unspecified; M81.0 Age-related osteoporosis without current pathological fracture; R73.03 Prediabetes

== ENCOUNTER → 2025-02-14 | Emergency (ER) | payer OTHER ==
[~2025-02-14] VITALS: Ht 152.4 cm; Wt 65.8 kg
[~2025-02-14] MED LIST changes: +8HR ARTHRITIS650 MG PO; +ACETAMINOPHEN 500 MG GEL..CAP PO ONE; +KETOROLAC TROMETHAMINE 60 MG VIAL IM ONE; +NORFLEX100MG PO; +[UNRECOGNIZED DRUG - OTHER] IV
== END | disposition left against medical advice (07) ==
LOC: ER 22:47
DX: I10 Essential (primary) hypertension (principal)

== ENCOUNTER 2025-02-17 20:16 | Emergency (ER) | payer OTHER ==
[~2025-02-17] VITALS: Ht 152.4 cm; Wt 674.5 kg
[~2025-02-17 20:16] MED LIST changes: -8HR ARTHRITIS650 MG PO; -ACETAMINOPHEN 500 MG GEL..CAP PO ONE; -KETOROLAC TROMETHAMINE 60 MG VIAL IM ONE; -NORFLEX100MG PO; -[UNRECOGNIZED DRUG - OTHER] IV
[2025-02-17 20:39] VITALS: BP 132/86; O2SAT 98
[2025-02-17] MEDS ORDERED: ACETAMINOPHEN 500 MG GEL..CAP PO ONE (22:15)
[2025-02-17] MEDS ORDERED: ORPHENADRINE CITRATE 30 MG/ML AMPUL IM ONE (22:15)
[2025-02-17] MEDS ORDERED: KETOROLAC TROMETHAMINE 60 MG VIAL IM ONE (22:15)
[2025-02-17] MEDS ORDERED: ORPHENADRINE CITRATE 30 MG/ML AMPUL ONE (22:16)
[2025-02-17] MEDS ORDERED: 8HR ARTHRITIS650 MG PO (23:50)
[2025-02-17] MEDS ORDERED: NORFLEX100MG PO (23:50)
== END 2025-02-18 00:18 | disposition home or self-care (01) ==
LOC: ER 20:16
DX: M25.561 Pain in right knee (principal); M19.90 Unspecified osteoarthritis, unspecified site; F41.8 Other specified anxiety disorders
CPT/HCPCS: 73560; 96372; 99283; J1885; J2360

== ENCOUNTER → 2025-02-23 | Emergency (ER) | payer OTHER ==
[~2025-02-23] MED LIST changes: +8HR ARTHRITIS650 MG PO; +ATARAX25 MG PO; +NORFLEX100MG PO; +[UNRECOGNIZED DRUG - OTHER] IV
== END | disposition left against medical advice (07) ==
LOC: ER 19:48
DX: Z53.21 Procedure and treatment not carried out due to patient leaving prior to being seen by health care provider (principal)

== ENCOUNTER → 2025-02-25 | Emergency (ER) | payer OTHER ==
[~2025-02-25] VITALS: Ht 152.4 cm; Wt 67.1 kg
[~2025-02-25] MED LIST changes: +CAPTOPRIL 12.5 MG TABLET PO ONE; +CAPTOPRIL 12.5 MG TABLET PO STA
[2025-02-25 23:05] VITALS: O2SAT 100
[2025-02-26 00:09] VITALS: BP 150/95
== END | disposition home or self-care (01) ==
LOC: ER 22:55
DX: I10 Essential (primary) hypertension (principal); E03.8 Other specified hypothyroidism

== ENCOUNTER 2025-02-27 21:57 | Emergency (ER) | payer OTHER ==
[~2025-02-27] VITALS: Ht 152.4 cm; Wt 67.1 kg
[~2025-02-27 21:57] MED LIST changes: -ATARAX25 MG PO; -CAPTOPRIL 12.5 MG TABLET PO ONE; -CAPTOPRIL 12.5 MG TABLET PO STA
[2025-02-28] MEDS ORDERED: LOSARTAN POTASSIUM 50 MG TABLET PO STA (07:20)
[2025-02-28] MEDS ORDERED: LEVOTHYROXINE SODIUM 100 MCG TABLET PO STA (07:20)
[2025-02-28 07:32] LABS: BASO % 1.0 % (0.1-1.2); EOS # 0.29 (0.04-0.54); EOS % 4.9 % (0.7-7.0); LYMPH # 1.37 (1.18-3.74); LYMPH % 22.9 % (19.3-53.1); MEAN PLATELET VOLUME 9.80 fl (9.4-12.4); MONO # 0.49 (0.24-0.82); MONO % 8.2 % (4.7-12.5); NEUT # 3.73 (1.56-6.13); NEUT % 62.5 % (34.0-71.1); RED CELL DISTRIBUTION WIDTH 15.4 % (11.6-14.4)
[2025-02-28 07:49] LABS: ALT/SGPT 22.0 U/L (12-78); AST/SGOT 21.0 U/L (15-37); BILIRUBIN TOTAL 0.54 mg/dL (0.3-1.2); BUN CREA RATIO 28.0 (7.0-25.0); CREATININE SERUM 0.75 mg/dL (0.55-1.02); GFR 75.33; GLOBULINA 3.5 G/DL (2.4-3.5); GLUCOSE FASTING 104.0 mg/dL (65-100); OSMOLALITY SERUM 290.0 MOSM/KG (275-295)
[2025-02-28 09:52] LABS: URINE APPEARANCE Clear; URINE BILIRRUBIN Negative (NEGATIVE); URINE BLOOD Negative; URINE COLOR Yellow; URINE GLUCOSE Negative (NEGATIVE); URINE KETONE Negative (NEGATIVE); URINE LEUKOCYTE Negative; URINE NITRATE Negative; URINE PROTEIN Negative (NEGATIVE); URINE UROBILINOGEN 0.2 E.U./dl
[2025-02-28] MEDS ORDERED: ATARAX25 MG PO (09:53)
[2025-02-28 09:56] LABS: URINE BACTERIA 30.8 uL (0.0-1933); URINE EPITHELIAL CELLS 7.4 uL (0.0-38.8); URINE WBC 2.5 uL (0.0-23.2)
[2025-02-28 09:57] LABS: URINE CAST 0.00 uL (0.0-1.40); URINE RBC 0.8 uL (0.0-20.8)
== END 2025-02-28 10:17 | disposition home or self-care (01) ==
LOC: ER 21:57
PROVIDERS: General Practice
DX: F41.8 Other specified anxiety disorders (principal); I10 Essential (primary) hypertension

== ENCOUNTER → 2025-03-01 | Emergency (ER) | payer OTHER ==
[~2025-03-01] VITALS: Ht 152.4 cm; Wt 67.1 kg
[~2025-03-01] MED LIST changes: +ATARAX25 MG PO
== END | disposition left against medical advice (07) ==
LOC: ER 20:06
DX: I10 Essential (primary) hypertension (principal)

== ENCOUNTER 2025-03-04 20:23 | Emergency (ER) | payer OTHER ==
[~2025-03-04] VITALS: Ht 152.4 cm; Wt 67.1 kg
[2025-03-04 20:33] VITALS: BP 127/77; O2SAT 100
[2025-03-04] MEDS ORDERED: NIFEDIPINE10 MG PO (20:46)
[2025-03-04] MEDS ORDERED: NIFEDIPINE 10 MG CAPSULE PO ONE (21:00)
== END 2025-03-04 20:58 | disposition home or self-care (01) ==
LOC: ER 20:23
DX: I10 Essential (primary) hypertension (principal)